=== PATIENT | male | born 1930 | race Caucasian/White ===

== ENCOUNTER 2018-02-15 04:40 | Inpatient (IN) ==
[2018-02-09 20:26] LABS: Appearance,Urine CLEAR; Bilirubin,Urine NEG (NEG); Color,Urine YELLOW; Glucose,Urine (UA) NEGATIVE (NEG); Leukocyte Esterase,Urine NEG /uL (NEG); Protein,Urine NEG (NEG); Specific Gravity,Urine 1.016 (1.000-1.035); Urine Blood NEG mg/dL (<0.03); Urobilinogen,Urine NEG (NEG)
[2018-02-09 20:31] LABS: Basophils # (Auto) 0.1 K/mcL (0.0-0.3); Basophils % (Auto) 0.8 % (0.0-2.0); Eosinophils # (Auto) 0.3 K/mcL (0.0-0.7); Eosinophils % (Auto) 3.3 % (0.0-7.0); Granulocytes % (Auto) 68.6 % (38.0-78.0); Lymphocytes # (Auto) 1.8 K/mcL (1.5-4.8); Lymphocytes % (Auto) 20.4 % (15.5-49.0); Mean Cell Volume 96.5 fL (80.0-100.0); Mean Corpuscular HGB Conc 33.3 g/dL (31.0-36.0); Mean Corpuscular Hemoglobin 32.1 pg (26.0-34.0); Monocytes # (Auto) 0.6 K/mcL (0.1-0.9); Monocytes % (Auto) 6.9 % (1.0-12.0); Platelet Count 251 K/mcL (140-440); RBC 4.24 M/mcL (4.50-5.90); Red Cell Distribution Width 16.2 % (11.5-14.5)
[2018-02-09 21:04] LABS: Blood Urea Nitrogen 16 mg/dl (8-23)
[2018-02-15] MEDS ORDERED: CELECOXIB 200 MG CAPSULE PO SCH (07:00)
[2018-02-15] MEDS ORDERED: ceFAZolin 1 GM VIAL IV SCH ×2 (07:00→15:30)
[2018-02-15] MEDS ORDERED: GABAPENTIN 300 MG CAPSULE PO SCH ×2 (07:00→15:00)
[2018-02-15] MEDS ORDERED: oxyCODONE 10 MG TAB.ER.12H PO SCH (07:00)
[2018-02-15] MEDS ORDERED: HEPARIN 20,000 UNIT/ML VIAL IR ONE (07:30)
[2018-02-15] MEDS ORDERED: HETASTARCH 6% 500 ML BAG IV ONE (07:50)
[2018-02-15] MEDS ORDERED: GLYCOPYRROLATE 0.2 MG/ML VIAL IV ONE (07:50)
[2018-02-15] MEDS ORDERED: LIDOCAINE HCL/PF 100 MG/5 ML SYRINGE IV ONE (07:50)
[2018-02-15] MEDS ORDERED: PHENYLEPHRINE 10 MG/ML VIAL IV ONE (07:50)
[2018-02-15] MEDS ORDERED: KETAMINE 100 MG/ML ML IV ONE (07:50)
[2018-02-15] MEDS ORDERED: PROPOFOL 200 MG/20 ML VIAL IV ONE (07:50)
[2018-02-15] MEDS ORDERED: EPINEPHrine 1 MG/10 ML (1:10,000) SYRINGE IV ONE (07:50)
[2018-02-15] MEDS ORDERED: TRANEXAMIC ACID 1,000 MG/10 ML VIAL IV ONE ×2 (07:50→09:11)
[2018-02-15] MEDS ORDERED: MIDAZOLAM 2 MG/2 ML VIAL IV ONE (07:50)
[2018-02-15] MEDS ORDERED: VASOPRESSIN 20 UNIT/ML VIAL IV ONE (07:50)
[2018-02-15] MEDS ORDERED: ONDANSETRON 4 MG/2 ML VIAL IV ONE (07:50)
[2018-02-15] MEDS ORDERED: ePHEDrine 50 MG/ML AMPUL IV ONE (07:50)
[2018-02-15] MEDS ORDERED: DEXAMETHASONE 10 MG/ML VIAL IV ONE (07:50)
[2018-02-15] MEDS ORDERED: MEPERIDINE 25 MG/ML SYRINGE IV PRN (08:22)
[2018-02-15] MEDS ORDERED: ACETAMINOPHEN 1,000 MG/100 ML BOTTLE IV ONE (08:22)
[2018-02-15] MEDS ORDERED: METHOCARBAMOL 1,000 MG/10 ML VIAL IV PRN ×2 (08:22→22:57)
[2018-02-15] MEDS ORDERED: IPRATROPIUM/ALBUTEROL 3 ML AMPUL.NEB NEB PRN (08:22)
[2018-02-15] MEDS ORDERED: FLUMAZENIL 0.1 MG/ML ML IV PRN (08:22)
[2018-02-15] MEDS ORDERED: BENZOCAINE/MENTHOL 1 LOZENGE PO PRN ×3 (08:22→13:34)
[2018-02-15] MEDS ORDERED: LACTATED RINGERS 250 ML IV PRN (08:22)
[2018-02-15] MEDS ORDERED: NALOXONE HCL 0.4 MG/ML VIAL IV PRN (08:22)
[2018-02-15] MEDS ORDERED: LACTATED RINGERS 1,000 ML IV SCH (08:30)
[2018-02-15] MEDS ORDERED: BACITRACIN ZINC PKT 1 PACKET PACKET TOPICAL ONE (08:31)
[2018-02-15] MEDS ORDERED: MAGNESIUM HYDROXIDE 30 ML ORAL.SUSP PO PRN (09:11)
[2018-02-15] MEDS ORDERED: HYDROCODONE/APAP 7.5/325MG TABLET PO PRN (09:11)
[2018-02-15] MEDS ORDERED: ONDANSETRON 4 MG/2 ML VIAL IV PRN (09:11)
[2018-02-15] MEDS ORDERED: DEXTROSE 31 GM ORAL.SUSP PO PRN ×2 (09:11→13:34)
[2018-02-15] MEDS ORDERED: BISACODYL 10 MG SUPP.RECT PR PRN ×2 (09:11→13:34)
[2018-02-15] MEDS ORDERED: POLYETHYLENE GLYCOL 3350 17 GM PACKET PO PRN (09:11)
[2018-02-15] MEDS ORDERED: FLEETS ADULT ENEMA PR PRN (09:11)
[2018-02-15] MEDS ORDERED: DEXTROSE 50% 50 ML VIAL IV PRN ×2 (09:11→13:34)
--- NOTE | 2018-02-15 09:11 | Brief Operative Note ---
Date of procedure: 02/15/18 Pre-op diagnosis: Right hip severe DJD Post-op diagnosis: same Procedure: Right anterior total hip arthroplasty Grafts/Implants: Yes (Depuy Actis std 10 stem, +1.5 36 delta head, 54 cup, neutral altrx liner) Anesthesia: spinal, GLMA Findings: severe arthritis Complications: none Surgeon: Jamal Lamb Tray Casting Machine Operator: Matti Adame Estimated blood loss (cc): 250 Specimens Removed/Pathology: none sent Condition: stable Disposition: PACU
[2018-02-15] MEDS ORDERED: 0.9 % SODIUM CHLORIDE 1,000 ML IV SCH (09:15)
[2018-02-15] MEDS ORDERED: ACETAMINOPHEN 500 MG TABLET PO PRN (09:16)
[2018-02-15] MEDS ORDERED: [UNRECOGNIZED DRUG - REMARK] PO PRN (09:16)
[2018-02-15] MEDS ORDERED: PIOGLITAZONE HCL 45 MG TABLET PO PRN (09:16)
[2018-02-15] MEDS ORDERED: SENNOSIDES 1 TABLET PO PRN (09:16)
[2018-02-15] MEDS ORDERED: ALPRAZolam 0.25 MG TABLET PO PRN (09:16)
[2018-02-15] MEDS ORDERED: TESTOSTERONE 100 MG IM SCH (09:30)
[2018-02-15] MEDS ORDERED: fentaNYL 100 MCG/2 ML VIAL IV PRN (09:48)
--- NOTE | 2018-02-15 10:09 | XRay Report ---
HISTORY: Reason for Exam:Post-op eval hypotension and difficulty breathing FINDINGS: There are moderate generalized alveolar opacities throughout both lungs. This is superimposed upon underlying pulmonary fibrosis. The heart is mildly enlarged. No pleural effusion is present. There are several bulla in the right upper lobe. The alveolar opacities are new since 06/15/16. IMPRESSION: Congestive heart failure or fluid overload superimposed upon underlying moderate pulmonary fibrosis Interpreted and Authenticated by: Gerber Olvera 02/15/18
--- NOTE | 2018-02-15 10:11 | XRay Report ---
HISTORY: Reason for Exam:Post-op Total Hip FINDINGS: There is well-positioned right total hip prosthesis. No fracture is present. There are multiple vascular calcifications in the groin in the lower pelvis. IMPRESSION: Well-positioned right hip prosthesis Interpreted and Authenticated by: Gerber Olvera 02/15/18
[2018-02-15] MEDS ORDERED: IPRATROPIUM/ALBUTEROL 3 ML AMPUL.NEB NEB ONE (11:20)
[2018-02-15] MEDS ORDERED: INSULIN LISPRO 1 UNIT/0.01 ML UNIT SQ SCH (11:30)
--- NOTE | 2018-02-15 11:39 | General Surgery Progress Note ---
Surgical - Auxillary Note - Subjective Patient Information: Note initiated : 02/15/18 at 11:34 am Service Date, if different from initiated Date: [] Patient: Robert Hammer 87 y/o M admitted on 02/15/18 for Right Total Hip Arthroplasty. Chief Complaint: [intraop hypotension, poorly responsive to fluids and mult pressors, eventually improved with vasopressin. post op PACU course complicated by persistent but improving hypotension, now off all pressors and latest sbp 109 , and hypoxia, mid to high 80s with o2 NC/simple mask. Nebs given, lasix given after pacu cxr showed pulm fibrosis and vascular congestion, 700 ml out since. pt awake alert following commands but poor resp effort and unable to perform on IS. after 2 hours in PACU, decision made to upgrade floor status, tele. Dr Loving contacted, accepts. orders written. DIETER]
--- NOTE | 2018-02-15 11:40 | General Surgery Progress Note ---
Surgical - Auxillary Note - Subjective Patient Information: Note initiated : 02/15/18 at 11:34 am Service Date, if different from initiated Date: [] Patient: Robert Hammer 87 y/o M admitted on 02/15/18 for Right Total Hip Arthroplasty. Chief Complaint: 0932. Hypotension. Patient with refractory hypotension throughout surgical course. Treated with multiple IV agents to maintain stable blood pressure. Able to keep blood pressure within 20% of patient's baseline blood pressure throughout perioperative course. Upon PACU arrival, blood pressure stable but slightly low. (88/60-115/70) quality assurance supervisor chassis, med surge charge nurse, and floor med surge nurse all notified of patient status. Patient stable in all other areas. Follow up EKG, Chest xray, and indwelling fuchs catheter ordered for further evaluation. EKG unremarkable. CXR shows possible fluid overload, lasix 20mg given. 1030. Patient's blood pressure remains stable, after further conversation with staff, decision for med surge status remains. 1130. Patient's oxygen saturation 88-92% on 2-4L nasal cannula. Decision made to make patient ICU status for closer monitoring. Dr. Lamb aware.
[2018-02-15] MEDS ORDERED: PIOGLITAZONE 15 MG TABLET PO PRN (13:34)
[2018-02-15] MEDS ORDERED: 0.9 % SODIUM CHLORIDE 10 ML SYRINGE IV SCH (14:00)
[2018-02-15] MEDS: GABAPENTIN 300 MG CAPSULE PO SCH ×2 (14:29→21:11)
[2018-02-15] MEDS: ceFAZolin 1 GM VIAL IV SCH (14:38)
[2018-02-15] MEDS: INSULIN LISPRO 1 UNIT/0.01 ML UNIT SQ SCH ×4 (14:45→22:12)
[2018-02-15] MEDS ORDERED: CLOBETASOL PROPIONATE TOPICAL SCH (15:00)
[2018-02-15 15:40] LABS: Basophils # (Auto) 0 K/mcL (0.0-0.3); Basophils % (Auto) 0.1 % (0.0-2.0); Eosinophils # (Auto) 0.1 K/mcL (0.0-0.7); Eosinophils % (Auto) 1.7 % (0.0-7.0); Granulocytes % (Auto) 92.7 % (38.0-78.0); Lymphocytes # (Auto) 0.4 K/mcL (1.5-4.8); Lymphocytes % (Auto) 4.2 % (15.5-49.0); Mean Cell Volume 95.8 fL (80.0-100.0); Mean Corpuscular HGB Conc 33.8 g/dL (31.0-36.0); Mean Corpuscular Hemoglobin 32.4 pg (26.0-34.0); Monocytes # (Auto) 0.1 K/mcL (0.1-0.9); Monocytes % (Auto) 1.3 % (1.0-12.0); Platelet Count 169 K/mcL (140-440); RBC 3.41 M/mcL (4.50-5.90)
--- NOTE | 2018-02-15 15:52 | Internal Medicine Consult Note ---
Medical - CN: HPI - Data of Consult Consult date: 02/15/18 Requesting Physician: Jamal Lamb Primary Care Provider: Shey Randle Family Provider: Blayne Schulte - Consult Narrative Reason for consult: Hypotension/ Intra op History of present illness: Mr. Hammer is a 87 year old Male with history of diabetes peripheral vascular disease atrial fibrillation and other medical issues was admitted to the [facility] service for an elective right hip replacement surgery. The patient had no symptoms in the preop. According to the patient. Urine the Intra-Op. The patient developed hypotension after administration of anesthesia. The patient needed pressor support intraoperatively and was hypotensive in the postop. Patient's blood pressure stabilized later and was moved to the ICU for close monitoring. Medicine was consulted for further management. EKG done postop showed no acute changes compared to the EKG done preop. On my evaluation patient was lying comfortably in bed, on 4-6 L of oxygen. This is a new oxygen requirement for the patient. He denies use of oxygen in the past however does have history of emphysema and COPD. The patient denies any chest pain shortness of breath cough fever headache dizziness abdominal pain nausea vomiting palpitations or any other acute concerning symptom at present or in the preop. Patient feels that he is doing well at this time and was anxious to eat some food. Chest x-ray done showed CHF versus fluid overload superimposed on moderate pulmonary fibrosis. Labs ordered. Patient's echocardiogram done 06/03/2017 shows ejection fraction of 55-60%, normal LV thickness, bilateral atrial enlargement, mild RV chamber enlargement. CC: Jamal Lamb Review of systems: CONSTITUTIONAL: No weight loss, fever, chills, weakness or fatigue. HEENT: Eyes: No visual loss, blurred vision, double vision or yellow sclerae. Ears, Nose, Throat: No hearing loss, sneezing, congestion, runny nose or sore throat. SKIN: No rash or itching. CARDIOVASCULAR: No chest pain, chest pressure or chest discomfort. No palpitations or edema. RESPIRATORY: No shortness of breath, cough or sputum. GASTROINTESTINAL: No nausea, vomiting or diarrhea or constipation. No abdominal pain or blood in stools No Dilia. GENITOURINARY: Denies Burning on urination. Blood in urine, or foul smelling urine NEUROLOGICAL: No headache, dizziness, syncope, paralysis, tremors, numbness or tingling in the extremities. No change in bowel or bladder control. MUSCULOSKELETAL: No muscle, back pain, joint pain or stiffness. HEMATOLOGIC: No bleeding or bruising. No enlarged nodes PSYCHIATRIC: No depression or anxiety. ENDOCRINOLOGIC: No reports of sweating, cold or heat intolerance. No polyuria or polydipsia. ALLERGIES: No hives, eczema or rhinitis. Skin: No rash, no jaundice, cyanosis or pallor. Medical - CN: [facility] Medical history: Medical History (Last Updated 08/17/17 @ 11:29 by Geni Meza) Emphysema of lung (Chronic) Obesity (Chronic) Gastritis (Chronic) History of tobacco abuse (Chronic) Urinary urgency (Chronic) Seborrheic dermatitis (Chronic) Neuropathy (Chronic) Hypogonadism (Chronic) Hypertension, essential (Chronic) Hyperlipidemia (Chronic) GERD (gastroesophageal reflux disease) (Chronic) Stomach ulcer (Chronic) Right knee pain (Chronic ~2012) Right hip pain (Chronic ~2012) DMII (diabetes mellitus, type 2) (Chronic) Arm pain (Chronic ~10/2016) Shoulder pain (Chronic ~10/2016) Prostate cancer (Chronic ~2015) Colon cancer (Chronic ~2011) Pneumonia (Acute) Surgical history: Past Surgical History (Last Updated 08/17/17 @ 11:29 by Geni Meza) H/O colonoscopy (Chronic) History of colon surgery (Chronic) Pertinent family history: Family History (Last Updated 08/17/17 @ 11:11 by Geni Meza) Brother Prostate cancer Medical - CN: Meds Home Medications Medication Instructions Recorded Confirmed Type alprazolam 0.25 mg tablet 0.25 mg PO DAILYP PRN tab 08/17/17 02/09/18 History celecoxib 200 mg capsule 200 mg PO QDAY 08/17/17 02/09/18 History finasteride 5 mg tablet 5 mg PO QDAY 08/17/17 02/09/18 History folic acid 400 mcg tablet 400 mcg PO DAILYP PRN 08/17/17 02/09/18 History gabapentin 300 mg capsule 300 mg PO TID 08/17/17 02/09/18 History glipizide ER 5 mg tablet, extended 5 mg PO BIDCC tab 08/17/17 02/09/18 History release 24 hr lovastatin 40 mg tablet 60 mg PO HS 08/17/17 02/09/18 History magnesium 250 mg tablet 500 mg PO QDAY 08/17/17 02/09/18 History pioglitazone 45 mg tablet 45 mg PO DAILYP PRN 08/17/17 02/09/18 History potassium 99 mg tablet 99 mg PO QDAY 08/17/17 02/09/18 History tamsulosin 0.4 mg capsule 0.8 mg PO HS cap 08/17/17 02/09/18 History testosterone 100 mg IM Q10D 08/17/17 02/09/18 History vitamin E 400 unit capsule 400 unit PO HS 08/17/17 02/09/18 History zinc 100 mg tablet 100 mg PO QDAY tab 08/17/17 02/09/18 History zinc 50 mg tablet 50 mg PO HS 08/17/17 02/09/18 History amitriptyline 75 mg tablet 75 mg PO HS tab 09/21/17 02/09/18 History pydqbwfx-rwdzo-jbn7-C-kyler-bor 1 tab PO BID 09/21/17 02/09/18 History sennosides 8.6 mg tablet 8.6 mg PO DAILYP PRN 09/21/17 02/09/18 History Acetaminophen [Tylenol] 1,000 mg PO Q4HP PRN 02/09/18 02/09/18 History Aspirin [Aspirin EC] 325 mg PO DAILY 02/09/18 02/09/18 History Caffeine [No Doz] 200 mg PO PRN PRN 02/09/18 02/09/18 History Cilostazol [Pletal] 100 mg PO BIDAC 02/09/18 02/09/18 History Clobetasol Propionate [Cormax] 1 each TOPICAL TID 02/09/18 02/09/18 History Ferrous Sulfate 325 mg PO BIDCC 02/09/18 02/09/18 History Oxybutynin Chloride [Oxybutynin 10 mg PO DAILY 02/09/18 02/09/18 History Chloride ER] Vitamin D3 800 unit PO DAILY 02/09/18 02/09/18 History sitaGLIPtin [Januvia] 100 mg PO DAILY 02/09/18 02/09/18 History Allergies Allergy/AdvReac Type Severity Reaction Status Date / Time metformin [From Glucophage] Allergy Unknown Unknown Verified 02/15/18 07:03 triamcinolone Allergy Unknown Unknown Verified 02/15/18 07:03 Medical - CN: Exam - Constitutional Vitals: Temp Pulse Resp BP Pulse Ox 96.6 F L 84 16 89/54 96 02/15/18 10:40 02/15/18 05:05 02/15/18 11:30 02/15/18 11:30 02/15/18 11:30 Exam: GENERAL: The patient is a well-developed, well-nourished in no apparent distress. Is alert and oriented x3. VITAL SIGNS: Reviewed and as noted elsewhere. HEENT: Head is normocephalic and atraumatic. Extraocular muscles are intact. Pupils are equal, round, and reactive to light. Nares appeared normal. Mouth appears any without lesions. Mucous membranes are moist. NECK: Normal to inspection, Supple, No lymphadenopathy or thyromegaly. LUNGS: Air entry equal on both sides, no wheezing, patient did have bilateral lower lobe crackles right more than the left.. No accessory muscles of respiration HEART: Regular rate and rhythm was irregular , S1 and S2 heard, no Gallop, S3 or Rub Noted, No Gross murmur heard. [Nzaaz-[id number]-[id number] ultrasound done showed IVC up to 2 cm in diameter but was collapsing normally with inspiration] ABDOMEN: Soft, nontender, and nondistended. Positive bowel sounds. No hepatosplenomegaly was noted. EXTREMITIES: No cyanosis, clubbing, rash, lesions or edema. NEUROLOGIC: Cranial nerves II through XII are grossly intact. Motor and Sensory System Grossly Intact PSYCHIATRIC: Normal affect, Normal Mood. Appropriate Behavior. SKIN: No ulceration or wounds noted, No jaundice, No rash noted. Medical - CN: Result - Labs CBC & Chem 7: 02/15/18 15:00 02/09/18 16:25 Labs: Short CBC 02/15/18 Range/Units 15:00 WBC 8.6 (4.5-11.0) K/mcL Hgb 11.0 L (13.5-16.5) g/dL Hct 32.7 L (41.0-55.0) % Plt Count 169 (140-440) K/mcL Medical - CN: A/P - Narrative A/P Narrative: A/p Intraop Hypotension: Likely secondary to anesthetic medication. Blood pressure stable at this point. Continue to monitor closely. Labs ordered, including CBC CMP BNP TSH cortisol troponin and pro calcitonin along with blood cultures. D-dimer also ordered. If elevated we will get a CT angiogram Hypoxia: Chest x-ray shows pulmonary fibrosis and mild fluid overload CHF. Patient did get some Lasix with improvement in symptoms according to documentation. Will monitor closely for now. Repeat dose of Lasix if the blood pressure allows. Patient did not have wheezing on exam did not have shortness of breath or cough. Duo nebs every 6 hours for now. DM: Glucose level reviewed, home medications renewed. If the glucose values are high will add sliding scale regime. Peripheral vascular disease-continue statin and aspirin. Atrial fibrillation-patient is on aspirin for same. Not on anticoagulation. Reviewed cardiology note did have history of noncompliance with medication as well as bleeding complications therefore anticoagulation has not been continued. Social History - Social History marital status: - Tobacco smoking status: Former smoker ([id number]-alwf smoking history) - Alcohol alcohol intake frequency: former alcohol drinker - Substance use substance use type: does not use
[2018-02-15 16:21] LABS: ALT/SGPT 26 U/l (0-40); Albumin 3.5 gm/dL (3.2-5.2); Bilirubin,Direct 0.3 mg/dL (0.0-0.3); Blood Urea Nitrogen 19 mg/dl (8-23); Gamma Glutamyl Transpeptidase 268 U/L (8-61)
[2018-02-15 16:22] LABS: Albumin/Globulin Ratio 1.7 (1.0-2.3); Alkaline Phosphatase 85 U/L (39-117)
[2018-02-15] MEDS ORDERED: CILOSTAZOL 100 MG TABLET PO SCH (17:00)
[2018-02-15] MEDS ORDERED: glipiZIDE 5 MG TAB.XL.24H PO SCH (17:30)
[2018-02-15] MEDS ORDERED: IOPAMIDOL 100 ML BOTTLE IV ONE (17:58)
[2018-02-15] MEDS: HYDROCODONE/APAP 7.5/325MG TABLET PO PRN ×2 (18:18→20:02)
[2018-02-15] MEDS: glipiZIDE 5 MG TAB.XL.24H PO SCH (18:21)
[2018-02-15] MEDS: CILOSTAZOL 100 MG TABLET PO SCH (18:21)
[2018-02-15] MEDS: IPRATROPIUM/ALBUTEROL 3 ML AMPUL.NEB NEB SCH (19:40)
[2018-02-15] MEDS ORDERED: ASPIRIN 325 MG ENTERIC COATED TABLET PO SCH (21:00)
[2018-02-15] MEDS ORDERED: TAMSULOSIN 0.4 MG CAPSULE PO SCH (21:00)
[2018-02-15] MEDS ORDERED: VITAMIN E (DL,TOCOPHERYL ACET) 400 UNIT CAPSULE PO SCH (21:00)
[2018-02-15] MEDS ORDERED: AMITRIPTYLINE 25 MG TABLET PO SCH (21:00)
[2018-02-15] MEDS ORDERED: SIMVASTATIN 20 MG TABLET PO SCH (21:00)
[2018-02-15] MEDS ORDERED: SENNOSIDES 1 TABLET PO SCH (21:00)
[2018-02-15] MEDS ORDERED: ZINC SULFATE 50 MG CAPSULE PO SCH (21:00)
[2018-02-15] MEDS ORDERED: DOCUSATE SODIUM 100 MG CAPSULE PO SCH (21:00)
[2018-02-15] MEDS: SIMVASTATIN 20 MG TABLET PO SCH (21:10)
[2018-02-15] MEDS: TAMSULOSIN 0.4 MG CAPSULE PO SCH (21:10)
[2018-02-15] MEDS: ASPIRIN 325 MG ENTERIC COATED TABLET PO SCH (21:13)
[2018-02-15] MEDS: DOCUSATE SODIUM 100 MG CAPSULE PO SCH (21:13)
[2018-02-15] MEDS: ALPRAZolam 0.25 MG TABLET PO PRN (21:14)
[2018-02-15] MEDS: AMITRIPTYLINE 25 MG TABLET PO SCH (21:14)
[2018-02-15] MEDS ORDERED: METHOCARBAMOL 1,000 MG/10 ML VIAL ONE (23:05)
[2018-02-16] MEDS: HYDROCODONE/APAP 7.5/325MG TABLET PO PRN (00:02)
[2018-02-16] MEDS: ceFAZolin 1 GM VIAL IV SCH (00:05)
[2018-02-16] MEDS: IPRATROPIUM/ALBUTEROL 3 ML AMPUL.NEB NEB SCH ×4 (01:42→19:31)
--- NOTE | 2018-02-16 07:44 | Orthopedic Progress Note ---
Orthopedics - Auxillary Note - Subjective Patient Information: Note initiated : 02/16/18 at 7:42 am Service Date, if different from initiated Date: [] Patient: Robert Hammer 87 y/o M admitted on 02/15/18 for Right Total Hip Arthroplasty. Chief Complaint: no c/o. bandages c/d/i nvi-distal Vital Signs Temp Pulse Resp BP BP Pulse Ox 02/16/18 03:56 98.2 F 18 98/60 96 02/16/18 01:01 109/58 02/16/18 00:11 18 101/57 99 02/15/18 23:01 98.4 F 17 105/66 96 02/15/18 22:02 115/86 02/15/18 21:03 94/77 02/15/18 20:01 98.3 F 86 20 95/57 98 02/15/18 20:00 96 02/15/18 19:57 85 18 97 02/15/18 19:29 85/56 02/15/18 19:01 110/100 02/15/18 18:32 112/93 02/15/18 16:06 91/69 100 02/15/18 16:03 77/57 02/15/18 16:01 73/44 02/15/18 14:31 100/65 02/15/18 14:01 104/58 02/15/18 13:31 103/54 02/15/18 13:02 107/54 02/15/18 12:31 87/58 93 02/15/18 12:01 91/64 91 02/15/18 12:00 16 95 02/15/18 11:59 90/64 94 02/15/18 11:30 16 89/54 96 02/15/18 10:55 15 82/51 96 02/15/18 10:50 14 86/52 88 L 02/15/18 10:40 96.6 F L 14 109/64 92 02/15/18 10:35 15 83/54 94 02/15/18 10:30 16 76/50 93 02/15/18 10:25 16 80/46 90 02/15/18 10:20 96.1 F L 15 99/59 94 02/15/18 10:15 14 89/62 02/15/18 10:10 15 77/54 95 02/15/18 10:05 96.5 F L 15 93/58 02/15/18 10:00 17 114/68 02/15/18 09:57 18 83/56 02/15/18 09:50 18 91/51 02/15/18 09:45 96.4 F L 16 81/54 02/15/18 09:40 15 106/68 02/15/18 09:35 16 120/59 02/15/18 09:32 98.0 F 15 116/55 99 02/15/18 09:30 17 114/77 Intake and Output 02/15/18 02/16/18 02/16/18 21:59 05:59 13:59 Intake Total 480 / 480 720 / 720 Output Total 750 / 750 650 / 650 Balance -270 / -270 70 / 70 Intake: Oral 480 / 480 720 / 720 Output: Urine Catheter Amount 750 / 750 650 / 650 Other: Meal Lunch Snack Percent of Meal Consumed 100% 100% Feeding Ability Independent Independent Weight 217 lb 4.8 oz Vital Signs - 24 hr 02/15/18 09:30 02/15/18 09:32 02/15/18 09:35 Temperature 98.0 F Pulse Rate Respiratory Rate 17 15 16 Blood Pressure Blood Pressure [Left Arm] 114/77 116/55 120/59 Pulse Oximetry (%) 99 02/15/18 09:40 02/15/18 09:45 02/15/18 09:50 Temperature 96.4 F L Pulse Rate Respiratory Rate 15 16 18 Blood Pressure Blood Pressure [Left Arm] 106/68 81/54 91/51 Pulse Oximetry (%) 02/15/18 09:57 02/15/18 10:00 02/15/18 10:05 Temperature 96.5 F L Pulse Rate Respiratory Rate 18 17 15 Blood Pressure Blood Pressure [Left Arm] 83/56 114/68 93/58 Pulse Oximetry (%) 02/15/18 10:10 02/15/18 10:15 02/15/18 10:20 Temperature 96.1 F L Pulse Rate Respiratory Rate 15 14 15 Blood Pressure Blood Pressure [Left Arm] 77/54 89/62 99/59 Pulse Oximetry (%) 95 94 02/15/18 10:25 02/15/18 10:30 02/15/18 10:35 Temperature Pulse Rate Respiratory Rate 16 16 15 Blood Pressure Blood Pressure [Left Arm] 80/46 76/50 83/54 Pulse Oximetry (%) 90 93 94 02/15/18 10:40 02/15/18 10:50 02/15/18 10:55 Temperature 96.6 F L Pulse Rate Respiratory Rate 14 14 15 Blood Pressure Blood Pressure [Left Arm] 109/64 86/52 82/51 Pulse Oximetry (%) 92 88 L 96 02/15/18 11:30 02/15/18 11:59 02/15/18 12:00 Temperature Pulse Rate Respiratory Rate 16 16 Blood Pressure 90/64 Blood Pressure [Left Arm] 89/54 Pulse Oximetry (%) 96 94 95 02/15/18 12:01 02/15/18 12:31 02/15/18 13:02 Temperature Pulse Rate Respiratory Rate Blood Pressure 91/64 87/58 107/54 Blood Pressure [Left Arm] Pulse Oximetry (%) 91 93 02/15/18 13:31 02/15/18 14:01 02/15/18 14:31 Temperature Pulse Rate Respiratory Rate Blood Pressure 103/54 104/58 100/65 Blood Pressure [Left Arm] Pulse Oximetry (%) 02/15/18 16:01 02/15/18 16:03 02/15/18 16:06 Temperature Pulse Rate Respiratory Rate Blood Pressure 73/44 77/57 91/69 Blood Pressure [Left Arm] Pulse Oximetry (%) 100 02/15/18 18:32 02/15/18 19:01 02/15/18 19:29 Temperature Pulse Rate Respiratory Rate Blood Pressure 112/93 110/100 85/56 Blood Pressure [Left Arm] Pulse Oximetry (%) 02/15/18 19:57 02/15/18 20:00 02/15/18 20:01 Temperature 98.3 F Pulse Rate 85 86 Respiratory Rate 18 20 Blood Pressure 95/57 Blood Pressure [Left Arm] Pulse Oximetry (%) 97 96 98 02/15/18 21:03 02/15/18 22:02 02/15/18 23:01 Temperature 98.4 F Pulse Rate Respiratory Rate 17 Blood Pressure 94/77 115/86 105/66 Blood Pressure [Left Arm] Pulse Oximetry (%) 96 02/16/18 00:11 02/16/18 01:01 02/16/18 03:56 Temperature 98.2 F Pulse Rate Respiratory Rate 18 18 Blood Pressure 101/57 109/58 98/60 Blood Pressure [Left Arm] Pulse Oximetry (%) 99 96 s/p R CHALO-stable mobilize with PT
--- NOTE | 2018-02-16 08:00 | Cat Scan Report ---
CLINICAL INFORMATION: Reason for Exam:hypoxia/ hypotension COMPARISON: Chest x-ray on 02/15/18 TECHNIQUE: Axial images obtained through the chest. intravenous contrast administration was administered, and scanning was performed during pulmonary arterial phase. Sagittally and coronally reformatted images were obtained. MIP reformatted images. FINDINGS: The pulmonary arteries are normal with no intraluminal filling defects. Moderate centrilobular emphysema is present throughout both lungs with the greatest involvement in the upper lobes. Tiny bilateral layering pleural effusions are present. There is mild thickening of the interlobular septa in the lung bases. Also subtle alveolar opacities posteriorly and inferiorly in both lung bases, left worse than right. The diffuse groundglass alveolar opacity seen on the preceding chest x-ray have nearly but not completely resolved. The heart is mildly enlarged. There is a moderate amount of calcified plaque in the coronary arteries. IMPRESSION: No evidence of pulmonary emboli Moderate emphysema Resolving pulmonary vascular congestion Minor atelectasis or pneumonia posteriorly in both lung bases Interpreted and Authenticated by: Gerber Olvera 02/16/18
[2018-02-16] MEDS ORDERED: sitaGLIPtin 100 MG TABLET PO SCH (09:00)
[2018-02-16] MEDS ORDERED: FINASTERIDE 5 MG TABLET PO SCH (09:00)
[2018-02-16] MEDS ORDERED: OXYBUTYNIN CHLORIDE 5 MG TAB.XL.24H PO SCH (09:00)
[2018-02-16] MEDS ORDERED: FOLIC ACID 1 MG TABLET PO PRN (09:00)
[2018-02-16] MEDS ORDERED: ZINC SULFATE 50 MG CAPSULE PO SCH (09:00)
[2018-02-16] MEDS ORDERED: MAGNESIUM OXIDE 400 MG TABLET PO SCH (09:00)
[2018-02-16] MEDS ORDERED: VITAMIN D3 400 UNIT TABLET PO SCH (09:00)
[2018-02-16] MEDS ORDERED: FUROSEMIDE 20 MG/2 ML VIAL IV ONE (09:07)
[2018-02-16] MEDS: INSULIN LISPRO 1 UNIT/0.01 ML UNIT SQ SCH ×4 (09:15→21:04)
[2018-02-16] MEDS: FINASTERIDE 5 MG TABLET PO SCH (09:16)
[2018-02-16] MEDS: ASPIRIN 325 MG ENTERIC COATED TABLET PO SCH ×2 (09:16→21:05)
[2018-02-16] MEDS: CILOSTAZOL 100 MG TABLET PO SCH ×2 (09:16→17:13)
[2018-02-16] MEDS: glipiZIDE 5 MG TAB.XL.24H PO SCH ×2 (09:16→17:13)
[2018-02-16] MEDS: OXYBUTYNIN CHLORIDE 5 MG TAB.XL.24H PO SCH (09:16)
[2018-02-16] MEDS: DOCUSATE SODIUM 100 MG CAPSULE PO SCH ×2 (09:16→21:05)
[2018-02-16] MEDS: sitaGLIPtin 100 MG TABLET PO SCH (09:16)
[2018-02-16] MEDS: GABAPENTIN 300 MG CAPSULE PO SCH ×3 (09:17→21:06)
[2018-02-16] MEDS: ZINC SULFATE 50 MG CAPSULE PO SCH (09:19)
[2018-02-16] MEDS: methylPREDNISolone SOD SUCC 125 MG/2 ML VIAL IV SCH ×2 (09:46→17:00)
[2018-02-16] MEDS ORDERED: MAGNESIUM SULFATE 2 GM/50 ML BAG IV ONE (10:41)
--- NOTE | 2018-02-16 10:44 | Operative Note ---
DATE OF OPERATION: 02/15/2018 PREOPERATIVE DIAGNOSIS: Right hip severe osteoarthritis. POSTOPERATIVE DIAGNOSIS: Right hip severe osteoarthritis. PROCEDURE PERFORMED: Right anterior total hip arthroplasty placing a DePuy Actis size 10 standard offset femoral component; a +1.5, 36 mm delta ceramic head ball; a 54 mm [place] cup with a neutral Altrx liner. SURGEON: Jamal Lamb M.D. CARDIAC CATHETERIZATION TECHNICIAN: Yoni Adame PA-C. ANESTHESIA: Spinal plus general. DRAINS: None. SPECIMENS: Femoral head and reamings which were discarded. BLOOD LOSS: 250 mL. COMPLICATIONS: None. POSTOPERATIVE CONDITION: Stable. INDICATIONS FOR SURGERY: This is an 87-year-old male who has had longstanding, progressive worsening, severe right hip pain. Radiographs showed severe [id number] osteoarthritis. FINDINGS AT SURGERY: As above. Post implantation showed good component position and leg length equality. PROCEDURE IN DETAIL: The patient had been seen preoperatively and informed consent had been obtained after discussion of risks and benefits of surgery. Risks including, but not limited to, bleeding, possibly requiring transfusion; infection, possibly requiring implant removal and prolonged IV antibiotics; injury to nerves, blood vessels and other surrounding structures; anesthetic risks; incomplete or no resolution of symptoms; stiffness; pain; weakness; dislocation; DVT and pulmonary embolus risks. He understood these risks and wished to proceed. Correct operative site was marked and then patient was taken to the operating room after spinal anesthesia was given. He was carefully positioned on the fracture table and then the right hip and groin were carefully prepped and draped in normal sterile fashion. A time-out was performed verifying patient name, operative site, and plan. Standard anterior approach incision was made with a scalpel through skin and subcutaneous tissue and then hemostasis obtained with Bovie cautery. Continued blunt dissection down onto the tensor fascia, and this was undermined circumferentially. Irrisept was irrigated and then a ring retractor placed. We then incised the tensor fascia in line with the muscle fibers and then carefully bluntly dissected medial to the muscle belly. Blunt cobra retractors were placed on the superior and inferior neck. Circumflex vessels were coagulated and cut and vastus fascia split distally. We then performed an anterior capsulectomy, and a corkscrew was placed in the femoral head. Osteotome was used under fluoro to identify our neck cut and then oscillating saw was used to make our osteotomy. Femoral head was removed and the acetabulum was exposed. Labrum was excised circumferentially, as well as soft tissue from the floor. We then reamed, directly medializing to the tear drop, and then increased reamer size and angle until we got rim ream with a 53 reamer. We irrigated Irrisept and opened a 54 [place] cup. After a minute we pulse lavaged copiously with saline. The cup was then impacted at approximately 35 to 40 degrees of inclination and 25 degrees of anteversion. We did get good press-fit, so a center hole cover was placed, and a neutral Altrx liner was carefully aligned and impacted. Traction was removed from the leg. It was externally rotated and capsule released around the medial and posterior neck. We then extended and adducted the leg and released capsule out to the greater trochanter. Box osteotome and awl were used to enter the canal and then a rongeur and rasp to lateralize. We then sequentially broached up to a size 9 which seated at our neck cut. We placed a standard neck trial and a 36, 1 5 head ball trial and then reduced the hip. It did not reduce with excessive tension. AP pelvis was taken to verify neutral rotation and then AP of the nonoperative and operative hips were taken and x-rays were overlaid. Our leg lengths appeared symmetrical. We redislocated and exposed the proximal femur. I was able, however, to impact the stem below our neck cut, so I went up to a size 10 femoral trial. This seated just above the neck cut. We then removed the trial. A 10 standard offset Actis stem was opened. The femoral canal was irrigated with Irrisept, after a minute we pulse lavaged copiously with saline and then impacted the stem. This did seat fully on our neck cut. A +1.5 head ball was opened. The stem was carefully cleaned and dried and the head ball briskly impacted. Hip was reduced again without excessive tension. Final fluoro images were taken which showed good component position and leg length equality. We irrigated with Irrisept, after a minute we pulse lavaged with saline. A #1 Vicryl running stitch was used to close tensor fascia, one running proximal and one running distal. Final Irrisept irrigation was done, after a minute final pulse lavage, and then 2-0 Monocryl for subcutaneous and maria e for skin. Xeroform and sterile dressing were applied. The patient was then awakened, extubated, and transferred to recovery in stable condition. [email or web address] Job ID: [id number] Doc ID: [id number] Jamal Lamb MD
[2018-02-16] MEDS: ACETAMINOPHEN 500 MG TABLET PO PRN (14:13)
--- NOTE | 2018-02-16 15:07 | Internal Med Progress Note ---
Medical - PN: Subj Patient information: Note initiated : 02/16/18 at 3:06 pm Service Date, if different from initiated Date: [] Patient: Robert Hammer 87 y/o M admitted on 02/15/18 for Right Total Hip Arthroplasty. Chief Complaint: [] Interval history: Mr. Hammer is a 87 year old Male with history of diabetes peripheral vascular disease atrial fibrillation and other medical issues was admitted to the [facility] for an elective right hip replacement surgery. The patient had no symptoms in the preop. According to the patient. Urine the Intra-Op. The patient developed hypotension after administration of anesthesia. The patient needed pressor support intraoperatively and was hypotensive in the postop. Patient's blood pressure stabilized later and was moved to the ICU for close monitoring. Medicine was consulted for further management. EKG done postop showed no acute changes compared to the EKG done preop. On my evaluation patient was lying comfortably in bed, on 4-6 L of oxygen. This is a new oxygen requirement for the patient. He denies use of oxygen in the past however does have history of emphysema and COPD. The patient denies any chest pain shortness of breath cough fever headache dizziness abdominal pain nausea vomiting palpitations or any other acute concerning symptom at present or in the preop. Patient feels that he is doing well at this time and was anxious to eat some food. Chest x-ray done showed CHF versus fluid overload superimposed on moderate pulmonary fibrosis. Labs ordered. Patient's echocardiogram done 06/03/2017 shows ejection fraction of 55-60%, normal LV thickness, bilateral atrial enlargement, mild RV chamber enlargement. - Constitutional Vitals: Vital Signs Temp Pulse Resp BP Pulse Ox 97.2 F 104 H 20 87/56 95 02/16/18 12:01 02/16/18 12:01 02/16/18 12:01 02/16/18 12:01 02/16/18 12:01 Period Temp Pulse Resp BP Sys/Wu Pulse Ox Last 24 Hr 97.2 F-98.4 F 85-104 17-20 73-115/40-100 95-100 Intake and Output 02/16/18 02/16/18 02/16/18 05:59 13:59 21:59 Intake Total 720 / 720 290 / 290 Output Total 650 / 650 Balance 70 / 70 290 / 290 Weight 217 lb 4.8 oz Patient Weight 02/17/18 05:59 Weight 217 lb 4.8 oz Intake & Output: Intake & Output 02/16/18 02/16/18 02/16/18 05:59 13:59 21:59 Intake Total 720 / 720 290 / 290 Output Total 650 / 650 Balance 70 / 70 290 / 290 Weight 217 lb 4.8 oz Intake: IV 50 / 50 Oral 720 / 720 240 / 240 Output: Urine Catheter Amount 650 / 650 Other: Meal Snack Breakfast Percent of Meal Consumed 100% 100% Feeding Ability Independent Assist with Tray Set Up Medical - PN: Obj Da - Labs CBC & Chem 7: 02/16/18 03:45 02/15/18 15:00 Labs: Abnormal Lab Results 02/16/18 02/15/18 02/15/18 03:45 15:00 15:00 RBC Hgb 10.3 L Hct 31.2 L RDW Gran % Lymph % (Auto) Lymph # (Auto) D-Dimer 1.89 H Glucose 252 H Calcium 8.4 L GGT 268 H NT-Pro-B Natriuret Pep 1085.0 H Total Protein 5.6 L Globulin 2.1 L 02/15/18 15:00 RBC 3.41 L Hgb 11.0 L Hct 32.7 L RDW 16.0 H Gran % 92.7 H Lymph % (Auto) 4.2 L Lymph # (Auto) 0.4 L D-Dimer Glucose Calcium GGT NT-Pro-B Natriuret Pep Total Protein Globulin Meds: Medications Acetaminophen (Tylenol) 1,000 mg PO Q4HP PRN PRN Reason: Pain Last Admin: 02/16/18 14:13 Dose: 1,000 mg Hydrocodone Bitart/Acetaminophen ([place] 7.5/325mg) 0 tab PO Q4HP PRN PRN Reason: PAIN LEVEL 3-6 Last Admin: 02/16/18 00:02 Dose: 2 tab Albuterol/Ipratropium (Duoneb) 3 ml NEB Q6HRT [facility] Last Admin: 02/16/18 13:58 Dose: Not Given Alprazolam (Xanax) 0.25 mg PO DAILYP PRN PRN Reason: Anxiety Last Admin: 02/15/18 21:14 Dose: 0.25 mg Amitriptyline HCl (Elavil) 75 mg PO HS [facility] Last Admin: 02/15/18 21:14 Dose: 75 mg Aspirin (Ecotrin) 325 mg PO BID [facility] Last Admin: 02/16/18 09:16 Dose: 325 mg Bisacodyl (Dulcolax) 10 mg RI Q2-3DAYS PRN PRN Reason: Constipation Cilostazol (Pletal) 100 mg PO BIDAC [facility] Last Admin: 02/16/18 09:16 Dose: 100 mg Dextrose (Dextrose 50%) 0 ml IV UD PRN PRN Reason: Hypoglycemia Diagnostic Test (Pha) (Accu-Chek) 1 each FS ACHS [facility] Last Admin: 02/16/18 11:40 Dose: 1 each Docusate Sodium (Colace) 100 mg PO BID [facility] Last Admin: 02/16/18 09:16 Dose: 100 mg Finasteride (Proscar) 5 mg PO QDAY [facility] Last Admin: 02/16/18 09:16 Dose: 5 mg Gabapentin (Neurontin) 300 mg PO TID [facility] Last Admin: 02/16/18 14:13 Dose: 300 mg Glipizide (Glucotrol Xl) 5 mg PO BIDCC [facility] Last Admin: 02/16/18 09:16 Dose: 5 mg Glucose (Insta-Glucose) 15 gm PO PRN PRN PRN Reason: Hypoglycemia Insulin Human Lispro (Humalog) 0 unit SQ [facility] PRN Reason: Protocol Last Admin: 02/16/18 12:06 Dose: 6 unit Magnesium Hydroxide (Milk Of Magnesia) 30 ml PO BIDP PRN PRN Reason: Constipation Methocarbamol (Robaxin) 500 mg IV Q6HP PRN PRN Reason: Muscle Spasm Methylprednisolone Sodium Succinate (Solu-Medrol) 62.5 mg IV Q8 [facility] Last Admin: 02/16/18 09:46 Dose: 62.5 mg Oxybutynin Chloride (Ditropan Xl) 10 mg PO DAILY [facility] Last Admin: 02/16/18 09:16 Dose: 10 mg Pioglitazone HCl (Actos) 45 mg PO DAILYP PRN PRN Reason: hyperglycemia Simvastatin (Zocor) 20 mg PO HS [facility] Last Admin: 02/15/18 21:10 Dose: 20 mg Sitagliptin Phosphate (Januvia) 100 mg PO DAILY [facility] Last Admin: 02/16/18 09:16 Dose: 100 mg Tamsulosin HCl (Flomax) 0.8 mg PO HS [facility] Last Admin: 02/15/18 21:10 Dose: 0.8 mg Throat Lozenges (Cepacol) 1 lozenge PO PRN PRN PRN Reason: Sore Throat Zinc Sulfate (Zinc) 100 mg PO DAILY [facility] Last Admin: 02/16/18 09:19 Dose: 100 mg Medical - PN: A/P - Time Spent With Patient Total time spent is greater than 50% in coordination of care (as documented) at patient's floor/unit and/or counseling patient: - Narrative A/P Narrative: A/p Intraop and post op Hypotension: Likely secondary to anesthetic medication. Blood pressure stable at this point, but on the lower end of normal, Continue to monitor closely. labs stable, CT Angio neg for PE. Echo ordered. IV lasix for possible chf. related. vs infection. Procalcitonin is neg, But CT did show possible infiltrate. start on levofloxacin. Hypoxia: Chest x-ray shows pulmonary fibrosis and mild fluid overload CHF. Patient did get some Lasix with improvement in symptoms according to documentation. repeat dose of lasix given today . Patient did not have wheezing on exam did not have shortness of breath or cough. Duo nebs every 6 hours for now. IV steroids and IV levofloxacin added after CT findings of emphysema and pt needing increased oxygen. CT showed possibl infection, possible chf, and moderate emphysema. DM: Glucose level reviewed, home medications renewed. add sliding scale regime. given that we have started steroids. Peripheral vascular disease-continue statin and aspirin. Atrial fibrillation-patient is on aspirin for same. Not on anticoagulation. Reviewed cardiology note did have history of noncompliance with medication as well as bleeding complications therefore anticoagulation has not been continued. HR was controlled till this AM then went in RVR Plan to monitor, use digoxin for rate control given hypotension. DVT asa bid as per ortho protocol Medical - PN: Qual - VTE Deep Vein Thrombosis/Pulmonary Embolism Present on Admission: No
[2018-02-16] MEDS: LEVOFLOXACIN 750 MG/150 ML BAG IV SCH (17:44)
[2018-02-16] MEDS ORDERED: DIGOXIN 500 MCG/2 ML AMPUL IV ONE ×2 (18:44→18:59)
[2018-02-16] MEDS: AMITRIPTYLINE 25 MG TABLET PO SCH (21:05)
[2018-02-16] MEDS: TAMSULOSIN 0.4 MG CAPSULE PO SCH (21:05)
[2018-02-16] MEDS: SIMVASTATIN 20 MG TABLET PO SCH (21:05)
[2018-02-17] MEDS: IPRATROPIUM/ALBUTEROL 3 ML AMPUL.NEB NEB SCH ×4 (01:18→19:39)
[2018-02-17 05:16] LABS: Basophils # (Auto) 0 K/mcL (0.0-0.3); Basophils % (Auto) 0.1 % (0.0-2.0); Eosinophils # (Auto) 0 K/mcL (0.0-0.7); Eosinophils % (Auto) 0 % (0.0-7.0); Granulocytes % (Auto) 93.4 % (38.0-78.0); Lymphocytes # (Auto) 0.6 K/mcL (1.5-4.8); Mean Cell Volume 97.3 fL (80.0-100.0); Mean Corpuscular HGB Conc 32.7 g/dL (31.0-36.0); Mean Corpuscular Hemoglobin 31.8 pg (26.0-34.0); Monocytes # (Auto) 0.4 K/mcL (0.1-0.9); Monocytes % (Auto) 2.5 % (1.0-12.0); Platelet Count 153 K/mcL (140-440); RBC 3.13 M/mcL (4.50-5.90); Red Cell Distribution Width 15.9 % (11.5-14.5)
[2018-02-17] MEDS: methylPREDNISolone SOD SUCC 125 MG/2 ML VIAL IV SCH ×2 (05:24)
[2018-02-17 06:08] LABS: ALT/SGPT 17 U/l (0-40); Albumin 3.2 gm/dL (3.2-5.2); Albumin/Globulin Ratio 1.3 (1.0-2.3); Alkaline Phosphatase 72 U/L (39-117); Bilirubin,Direct < 0.2 mg/dL (0.0-0.3); Blood Urea Nitrogen 20 mg/dl (8-23); Gamma Glutamyl Transpeptidase 222 U/L (8-61); Uric Acid 4.7 mg/dL (2.5-8.0)
[2018-02-17] MEDS: ACETAMINOPHEN 500 MG TABLET PO PRN ×2 (07:46→21:07)
[2018-02-17] MEDS: glipiZIDE 5 MG TAB.XL.24H PO SCH ×2 (07:47→17:30)
[2018-02-17] MEDS: CILOSTAZOL 100 MG TABLET PO SCH ×2 (07:47→17:30)
[2018-02-17] MEDS: INSULIN LISPRO 1 UNIT/0.01 ML UNIT SQ SCH ×4 (08:06→21:06)
[2018-02-17] MEDS: GABAPENTIN 300 MG CAPSULE PO SCH ×3 (08:07→21:07)
[2018-02-17] MEDS: sitaGLIPtin 100 MG TABLET PO SCH (08:07)
[2018-02-17] MEDS: OXYBUTYNIN CHLORIDE 5 MG TAB.XL.24H PO SCH (08:07)
[2018-02-17] MEDS: FINASTERIDE 5 MG TABLET PO SCH (08:07)
[2018-02-17] MEDS: ZINC SULFATE 50 MG CAPSULE PO SCH (08:07)
[2018-02-17] MEDS: DOCUSATE SODIUM 100 MG CAPSULE PO SCH ×2 (08:08→21:08)
[2018-02-17] MEDS: ASPIRIN 325 MG ENTERIC COATED TABLET PO SCH ×2 (08:08→21:07)
[2018-02-17] MEDS ORDERED: FUROSEMIDE 20 MG/2 ML VIAL IV ONE (08:50)
[2018-02-17] MEDS: LEVOFLOXACIN 750 MG/150 ML BAG IV SCH (08:59)
--- NOTE | 2018-02-17 09:27 | Orthopedic Progress Note ---
Subjective Patient information: Note initiated : 02/17/18 at 9:24 am Service Date, if different from initiated Date: [] Patient: Robert Hammer 87 y/o M admitted on 02/15/18 for Right Total Hip Arthroplasty. Chief Complaint: [] Principal diagnosis: s/p R total hip arthroplasty Interval history: c/o pain in the leg, controlled with meds Objective Vital signs: Vital Signs Temp Pulse Resp BP Pulse Ox 02/17/18 07:55 97.9 F 16 109/60 96 02/17/18 07:34 94 02/17/18 07:33 80 16 02/17/18 05:01 99/52 02/17/18 04:01 98.2 F 18 102/53 95 02/17/18 03:01 102/52 02/17/18 02:02 86/49 02/17/18 00:01 98.3 F 18 95/59 96 02/16/18 21:01 104/54 02/16/18 20:01 98.2 F 20 86/45 90 02/16/18 19:31 107 H 18 93 02/16/18 19:01 86/41 81 L 02/16/18 19:00 94 02/16/18 18:01 89/54 02/16/18 17:01 88/60 93 02/16/18 16:01 98.7 F 102 H 22 100/56 94 02/16/18 15:01 86/61 97 02/16/18 14:01 92/50 02/16/18 13:00 87/52 02/16/18 12:01 97.2 F 104 H 20 87/56 95 02/16/18 11:54 74/40 02/16/18 11:49 76/51 02/16/18 11:48 75/51 02/16/18 11:47 97.2 F 104 H 20 80/45 95 02/16/18 11:01 108/52 02/16/18 10:31 93/48 02/16/18 10:06 82/55 02/16/18 10:01 77/51 02/16/18 09:52 93/49 100 02/16/18 09:30 18 Intake and Output 02/16/18 02/17/18 02/17/18 21:59 05:59 13:59 Intake Total 390 / 390 360 / 360 Output Total 1300 / 1300 700 / 700 Balance -910 / -910 -340 / -340 Intake: IV 150 / 150 Oral 240 / 240 360 / 360 Output: Urine Catheter Amount 1300 / 1300 700 / 700 Other: Meal Dinner Percent of Meal Consumed 100% Feeding Ability Assist with Tray Set Up Weight 219 lb 1.92 oz Intake & Output: Intake & Output 02/16/18 02/17/18 02/17/18 21:59 05:59 13:59 Intake Total 390 / 390 360 / 360 Output Total 1300 / 1300 700 / 700 Balance -910 / -910 -340 / -340 Weight 219 lb 1.92 oz Intake: IV 150 / 150 Oral 240 / 240 360 / 360 Output: Urine Catheter Amount 1300 / 1300 700 / 700 Other: Meal Dinner Percent of Meal Consumed 100% Feeding Ability Assist with Tray Set Up Dressing: Yes clean, Yes dry, Yes intact Neurological exam IM: Yes motor sensory intact - Labs CBC & BMP: 02/17/18 03:50 02/17/18 03:50 Labs: Orthopedic Labs 02/15/18 02/09/18 15:00 16:25 PT 13.8 INR 1.1 D-Dimer 1.89 H 02/17/18 02/16/18 02/15/18 03:50 03:45 15:00 Hgb 9.9 L 10.3 L 11.0 L Hct 30.4 L 31.2 L 32.7 L 02/09/18 16:25 Hgb 13.6 Hct 40.9 L Assessment and Plan (1) Status post total hip replacement, right POD#2-orthopedically stable -mobilize if possible -med mgmt per hospitalists Status: Acute
[2018-02-17] MEDS: HYDROCODONE/APAP 7.5/325MG TABLET PO PRN ×2 (10:20→22:55)
[2018-02-17] MEDS ORDERED: DIGOXIN 500 MCG/2 ML AMPUL IV ONE (15:09)
--- NOTE | 2018-02-17 15:09 | Internal Med Progress Note ---
Medical - PN: Subj Patient information: Note initiated : 02/17/18 at 3:06 pm Service Date, if different from initiated Date: [] Patient: Robert Hammer 87 y/o M admitted on 02/15/18 for Right Total Hip Arthroplasty. Chief Complaint: [] Interval history: Mr. Hammer is a 87 year old Male with history of diabetes peripheral vascular disease atrial fibrillation and other medical issues was admitted to the [facility] service for an elective right hip replacement surgery. The patient had no symptoms in the preop. According to the patient. Urine the Intra-Op. The patient developed hypotension after administration of anesthesia. The patient needed pressor support intraoperatively and was hypotensive in the postop. Patient's blood pressure stabilized later and was moved to the ICU for close monitoring. Medicine was consulted for further management. EKG done postop showed no acute changes compared to the EKG done preop. On my evaluation patient was lying comfortably in bed, on 4-6 L of oxygen. This is a new oxygen requirement for the patient. He denies use of oxygen in the past however does have history of emphysema and COPD. The patient denies any chest pain shortness of breath cough fever headache dizziness abdominal pain nausea vomiting palpitations or any other acute concerning symptom at present or in the preop. Patient feels that he is doing well at this time and was anxious to eat some food. Chest x-ray done showed CHF versus fluid overload superimposed on moderate pulmonary fibrosis. Labs ordered. Patient's echocardiogram done 06/03/2017 shows ejection fraction of 55-60%, normal LV thickness, bilateral atrial enlargement, mild RV chamber enlargement. 02/17 Patient seen and examined, no acute overnight events. Blood pressure is in the lower end of normal. He is tolerating Lasix, continue with gentle diuresis. He still hypoxic needing oxygen. He denies any other acute complaints or concerns. He refuses to acknowledge that he has a history of atrial fibrillation, notes that he had irregular heartbeat since 1940s. He also does not wish to acknowledge the fact that he has COPD. He has moderate emphysema on his chest CT. Continue steroids and duo nebs for now. Continue gentle diuresis as much as blood pressure allows. Continue working with physical therapy. The patient did get tachycardic over some activity yesterday and did have tachycardia at baseline 2. He was given digoxin 1 yesterday I will repeat another dose today. Pertinent ROS: Denies headache, dizziness Denies chest pain, palpitations Denies cough or shortness of breath Denies abdominal pain, nausea or vomiting. - Constitutional Vitals: Vital Signs Temp Pulse Resp BP Pulse Ox 97.7 F 80 16 116/102 95 02/17/18 11:55 02/17/18 07:33 02/17/18 11:55 02/17/18 11:55 02/17/18 11:55 Period Temp Pulse Resp BP Sys/Wu Pulse Ox Last 24 Hr 97.7 F-98.7 F 80-115 16-22 86-116/41-102 81-96 Intake and Output 02/17/18 02/17/18 02/17/18 05:59 13:59 21:59 Intake Total 360 / 360 750 / 750 Output Total 700 / 700 750 / 750 Balance -340 / -340 0 / 0 Intake & Output: Intake & Output 02/17/18 02/17/18 02/17/18 05:59 13:59 21:59 Intake Total 360 / 360 750 / 750 Output Total 700 / 700 750 / 750 Balance -340 / -340 0 / 0 Intake: IV 150 / 150 Oral 360 / 360 600 / 600 Output: Urine Catheter Amount 700 / 700 750 / 750 Other: Meal Lunch Percent of Meal Consumed 100% Feeding Ability Independent Exam: Constitutional; Afebrile, cooperative, alert, not in distress. Eyes- No icterus, , No periorbital swelling Ears- Ext ear normal, hearing normal to conversation. Neck- Midline trachea, supple Respiratory system: Air Entry equal on both sides, No crackles or wheezing, no rhonchi. CVS- Rate rhythm irregular, S1,S2 heard, no gallop, no rub. Abdomen- Soft nontender abdomen, no organomegaly, no tenderness, no guarding or rigidity, [employer]- AOOx3, moving all extremities, no gross focal deficit noted. Medical - PN: Obj Da - Labs CBC & Chem 7: 02/17/18 03:50 02/17/18 03:50 Labs: Abnormal Lab Results 02/17/18 02/17/18 02/16/18 03:50 03:50 03:45 WBC 14.8 H RBC 3.13 L Hgb 9.9 L 10.3 L Hct 30.4 L 31.2 L RDW 15.9 H Gran % 93.4 H Lymph % (Auto) 4.0 L Gran # 13.8 H Lymph # (Auto) 0.6 L D-Dimer Glucose 289 H Calcium Phosphorus 2.1 L GGT 222 H NT-Pro-B Natriuret Pep Total Protein 5.6 L Globulin 02/15/18 02/15/18 02/15/18 15:00 15:00 15:00 WBC RBC 3.41 L Hgb 11.0 L Hct 32.7 L RDW 16.0 H Gran % 92.7 H Lymph % (Auto) 4.2 L Gran # Lymph # (Auto) 0.4 L D-Dimer 1.89 H Glucose 252 H Calcium 8.4 L Phosphorus GGT 268 H NT-Pro-B Natriuret Pep 1085.0 H Total Protein 5.6 L Globulin 2.1 L Meds: Medications Acetaminophen (Tylenol) 1,000 mg PO Q4HP PRN PRN Reason: Pain Last Admin: 02/17/18 07:46 Dose: 1,000 mg Hydrocodone Bitart/Acetaminophen ([place] 7.5/325mg) 0 tab PO Q4HP PRN PRN Reason: PAIN LEVEL 3-6 Last Admin: 02/17/18 10:20 Dose: 1 tab Albuterol/Ipratropium (Duoneb) 3 ml NEB Q6HRT [facility] Last Admin: 02/17/18 07:28 Dose: 3 ml Alprazolam (Xanax) 0.25 mg PO DAILYP PRN PRN Reason: Anxiety Last Admin: 02/15/18 21:14 Dose: 0.25 mg Amitriptyline HCl (Elavil) 75 mg PO HS [facility] Last Admin: 02/16/18 21:05 Dose: 75 mg Aspirin (Ecotrin) 325 mg PO BID [facility] Last Admin: 02/17/18 08:08 Dose: 325 mg Bisacodyl (Dulcolax) 10 mg [place] Q2-3DAYS PRN PRN Reason: Constipation Cilostazol (Pletal) 100 mg PO BIDAC [facility] Last Admin: 02/17/18 07:47 Dose: 100 mg Dextrose (Dextrose 50%) 0 ml IV UD PRN PRN Reason: Hypoglycemia Diagnostic Test (Pha) (Accu-Chek) 1 each FS ACHS [facility] Last Admin: 02/17/18 12:00 Dose: 1 each Docusate Sodium (Colace) 100 mg PO BID [facility] Last Admin: 02/17/18 08:08 Dose: 100 mg Finasteride (Proscar) 5 mg PO QDAY [facility] Last Admin: 02/17/18 08:07 Dose: 5 mg Gabapentin (Neurontin) 300 mg PO TID [facility] Last Admin: 02/17/18 08:07 Dose: 300 mg Glipizide (Glucotrol Xl) 5 mg PO BIDCC [facility] Last Admin: 02/17/18 07:47 Dose: 5 mg Glucose (Insta-Glucose) 15 gm PO PRN PRN PRN Reason: Hypoglycemia Levofloxacin (Levaquin) 750 mg in 150 mls @ 100 mls/hr IV Q24H [facility] Stop: 02/20/18 17:29 Last Infusion: 02/17/18 10:29 Dose: Infused Insulin Human Lispro (Humalog) 0 unit SQ ACHS [facility] PRN Reason: Protocol Last Admin: 02/17/18 12:37 Dose: 12 unit Magnesium Hydroxide (Milk Of Magnesia) 30 ml PO BIDP PRN PRN Reason: Constipation Methocarbamol (Robaxin) 500 mg IV Q6HP PRN PRN Reason: Muscle Spasm Methylprednisolone Sodium Succinate (Solu-Medrol) 40 mg IV DAILY [facility] Stop: 02/21/18 08:59 Oxybutynin Chloride (Ditropan Xl) 10 mg PO DAILY [facility] Last Admin: 02/17/18 08:07 Dose: 10 mg Pioglitazone HCl (Actos) 45 mg PO DAILYP PRN PRN Reason: hyperglycemia Simvastatin (Zocor) 20 mg PO HS [facility] Last Admin: 02/16/18 21:05 Dose: 20 mg Sitagliptin Phosphate (Januvia) 100 mg PO DAILY [facility] Last Admin: 02/17/18 08:07 Dose: 100 mg Tamsulosin HCl (Flomax) 0.8 mg PO HS [facility] Last Admin: 02/16/18 21:05 Dose: 0.8 mg Throat Lozenges (Cepacol) 1 lozenge PO PRN PRN PRN Reason: Sore Throat Zinc Sulfate (Zinc) 100 mg PO DAILY [facility] Last Admin: 02/17/18 08:07 Dose: 100 mg Medical - PN: A/P - Time Spent With Patient Total time spent is greater than 50% in coordination of care (as documented) at patient's floor/unit and/or counseling patient: - Narrative A/P Narrative: A/p Intraop and post op Hypotension: Likely secondary to anesthetic medication. Blood pressure stable at this point, but on the lower end of normal, Continue to monitor closely. labs stable, CT Angio neg for PE. Echo ordered. IV lasix for possible chf repeat dose today . related. vs infection. Procalcitonin is neg, But CT did show possible infiltrate. start on levofloxacin. Hypoxia: Chest x-ray shows pulmonary fibrosis and mild fluid overload CHF. Patient did get some Lasix with improvement in symptoms according to documentation. repeat dose of lasix given today . Patient did not have wheezing on exam did not have shortness of breath or cough. Duo nebs every 6 hours for now. IV steroids were started but will switch to oral steroids now , continue IV levofloxacin added after CT findings of emphysema and pt needing increased oxygen. CT showed possibl infection, possible chf, and moderate emphysema. DM: Glucose level reviewed, home medications renewed. continue sliding scale regime. given that we have started steroids. Peripheral vascular disease-continue statin and aspirin. Atrial fibrillation-patient is on aspirin for same. Not on anticoagulation. Reviewed cardiology note did have history of noncompliance with medication as well as bleeding complications therefore anticoagulation has not been continued. HR was controlled till this AM then went in RVR Plan to monitor, use digoxin for rate control given hypotension. DVT asa bid as per ortho protocol Medical - PN: Qual - VTE Deep Vein Thrombosis/Pulmonary Embolism Present on Admission: No
[2018-02-17] MEDS: AMITRIPTYLINE 25 MG TABLET PO SCH (21:07)
[2018-02-17] MEDS: TAMSULOSIN 0.4 MG CAPSULE PO SCH (21:07)
[2018-02-17] MEDS: SIMVASTATIN 20 MG TABLET PO SCH (21:08)
[2018-02-18] MEDS: IPRATROPIUM/ALBUTEROL 3 ML AMPUL.NEB NEB SCH ×4 (01:29→19:48)
[2018-02-18 05:57] LABS: Basophils # (Auto) 0 K/mcL (0.0-0.3); Basophils % (Auto) 0.1 % (0.0-2.0); Eosinophils # (Auto) 0.3 K/mcL (0.0-0.7); Granulocytes % (Auto) 80.5 % (38.0-78.0); Lymphocytes # (Auto) 1.3 K/mcL (1.5-4.8); Lymphocytes % (Auto) 10.3 % (15.5-49.0); Mean Cell Volume 97.5 fL (80.0-100.0); Mean Corpuscular HGB Conc 33.4 g/dL (31.0-36.0); Mean Corpuscular Hemoglobin 32.5 pg (26.0-34.0); Monocytes # (Auto) 0.9 K/mcL (0.1-0.9); Monocytes % (Auto) 7.1 % (1.0-12.0); Platelet Count 160 K/mcL (140-440); RBC 2.95 M/mcL (4.50-5.90); Red Cell Distribution Width 15.9 % (11.5-14.5)
[2018-02-18 06:40] LABS: ALT/SGPT 19 U/l (0-40); Albumin 2.9 gm/dL (3.2-5.2); Albumin/Globulin Ratio 1.2 (1.0-2.3); Alkaline Phosphatase 72 U/L (39-117); Bilirubin,Direct < 0.2 mg/dL (0.0-0.3); Blood Urea Nitrogen 28 mg/dl (8-23); Gamma Glutamyl Transpeptidase 220 U/L (8-61); Uric Acid 4.8 mg/dL (2.5-8.0)
[2018-02-18] MEDS ORDERED: FUROSEMIDE 20 MG/2 ML VIAL IV ONE (08:19)
[2018-02-18] MEDS: INSULIN LISPRO 1 UNIT/0.01 ML UNIT SQ SCH ×4 (08:28→21:47)
[2018-02-18] MEDS: GABAPENTIN 300 MG CAPSULE PO SCH ×3 (08:46→21:19)
[2018-02-18] MEDS: DOCUSATE SODIUM 100 MG CAPSULE PO SCH ×2 (08:46→21:19)
[2018-02-18] MEDS: predniSONE 20 MG TABLET PO SCH (08:46)
[2018-02-18] MEDS: ASPIRIN 325 MG ENTERIC COATED TABLET PO SCH ×2 (08:46→21:19)
[2018-02-18] MEDS: HYDROCODONE/APAP 7.5/325MG TABLET PO PRN (08:46)
[2018-02-18] MEDS: MAGNESIUM HYDROXIDE 30 ML ORAL.SUSP PO PRN (08:46)
[2018-02-18] MEDS: OXYBUTYNIN CHLORIDE 5 MG TAB.XL.24H PO SCH (08:47)
--- NOTE | 2018-02-18 08:47 | Internal Med Progress Note ---
Medical - PN: Subj Patient information: Note initiated : 02/18/18 at 8:41 am Service Date, if different from initiated Date: [] Patient: Robert Hammer 87 y/o M admitted on 02/15/18 for Right Total Hip Arthroplasty. Chief Complaint: [] Interval history: Mr. Hammer is a 87 year old Male with history of diabetes peripheral vascular disease atrial fibrillation and other medical issues was admitted to the [facility] for an elective right hip replacement surgery. The patient had no symptoms in the preop. According to the patient. Urine the Intra-Op. The patient developed hypotension after administration of anesthesia. The patient needed pressor support intraoperatively and was hypotensive in the postop. Patient's blood pressure stabilized later and was moved to the ICU for close monitoring. Medicine was consulted for further management. EKG done postop showed no acute changes compared to the EKG done preop. On my evaluation patient was lying comfortably in bed, on 4-6 L of oxygen. This is a new oxygen requirement for the patient. He denies use of oxygen in the past however does have history of emphysema and COPD. The patient denies any chest pain shortness of breath cough fever headache dizziness abdominal pain nausea vomiting palpitations or any other acute concerning symptom at present or in the preop. Patient feels that he is doing well at this time and was anxious to eat some food. Chest x-ray done showed CHF versus fluid overload superimposed on moderate pulmonary fibrosis. Labs ordered. Patient's echocardiogram done 06/03/2017 shows ejection fraction of 55-60%, normal LV thickness, bilateral atrial enlargement, mild RV chamber enlargement. 02/17 Patient seen and examined, no acute overnight events. Blood pressure is in the lower end of normal. He is tolerating Lasix, continue with gentle diuresis. He still hypoxic needing oxygen. He denies any other acute complaints or concerns. He refuses to acknowledge that he has a history of atrial fibrillation, notes that he had irregular heartbeat since 1940s. He also does not wish to acknowledge the fact that he has COPD. He has moderate emphysema on his chest CT. Continue steroids and duo nebs for now. Continue gentle diuresis as much as blood pressure allows. Continue working with physical therapy. The patient did get tachycardic over some activity yesterday and did have tachycardia at baseline 2. He was given digoxin 1 yesterday I will repeat another dose today. 5/5 Pt seen examined, and the bed comfortably. Denies any acute complaints. No chest pain shortness of breath abdominal pain nausea vomiting reported. He was unable to urinate well overnight needed to be straight cath. He is on Flomax as well as Ditropan for overactive bladder and BPH, monitor today. Will hold ditropan today and see how the patient does. Wean off oxygen as tolerated. Patient still requires oxygen at 2 L. Activity with physical therapy Patient's blood pressure is on the lower end of normal but stable patient is asymptomatic with his blood pressure. Pertinent ROS: Denies headache, dizziness Denies chest pain, palpitations Denies cough or shortness of breath Denies abdominal pain, nausea or vomiting. - Constitutional Vitals: Vital Signs Temp Pulse Resp BP Pulse Ox 97.1 F 87 16 103/58 92 02/18/18 07:55 02/18/18 07:38 02/18/18 07:55 02/18/18 07:55 02/18/18 07:55 Period Temp Pulse Resp BP Sys/Wu Pulse Ox Last 24 Hr 97.1 F-98.8 F 84-102 16-20 74-116/49-102 81-100 Intake and Output 02/17/18 02/18/18 02/18/18 21:59 05:59 13:59 Intake Total 340 / 340 400 / 400 Output Total 375 / 375 Balance -35 / -35 400 / 400 Weight 218 lb Intake & Output: Intake & Output 02/17/18 02/18/18 02/18/18 21:59 05:59 13:59 Intake Total 340 / 340 400 / 400 Output Total 375 / 375 Balance -35 / -35 400 / 400 Weight 218 lb Intake: Oral 340 / 340 GI Tube Flush 400 / 400 Output: Urine Catheter Amount 375 / 375 Other: Meal Egg salad sandwich [place] snack cup Percent of Meal Consumed 100% 100% Exam: Constitutional; Afebrile, cooperative, alert, not in distress. Eyes- No icterus, , No periorbital swelling Ears- Ext ear normal, hearing normal to conversation. Neck- Midline trachea, supple Respiratory system: Air Entry equal on both sides, No crackles or wheezing, no rhonchi. CVS- Rate rhythm irregular, S1,S2 heard, no gallop, no rub. 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 Medical - PN: Obj Da - Labs CBC & Chem 7: 02/18/18 03:50 02/18/18 03:50 Labs: Abnormal Lab Results 02/18/18 02/18/18 02/17/18 03:50 03:50 03:50 WBC 12.7 H RBC 2.95 L Hgb 9.6 L Hct 28.7 L RDW 15.9 H Gran % 80.5 H Lymph % (Auto) 10.3 L Gran # 10.2 H Lymph # (Auto) 1.3 L D-Dimer BUN 28 H Glucose 135 H 289 H Calcium Phosphorus 2.1 L GGT 220 H 222 H NT-Pro-B Natriuret Pep Total Protein 5.4 L 5.6 L Albumin 2.9 L Globulin 02/17/18 02/16/18 02/15/18 03:50 03:45 15:00 WBC 14.8 H RBC 3.13 L Hgb 9.9 L 10.3 L Hct 30.4 L 31.2 L RDW 15.9 H Gran % 93.4 H Lymph % (Auto) 4.0 L Gran # 13.8 H Lymph # (Auto) 0.6 L D-Dimer 1.89 H BUN Glucose Calcium Phosphorus GGT NT-Pro-B Natriuret Pep Total Protein Albumin Globulin 02/15/18 02/15/18 15:00 15:00 WBC RBC 3.41 L Hgb 11.0 L Hct 32.7 L RDW 16.0 H Gran % 92.7 H Lymph % (Auto) 4.2 L Gran # Lymph # (Auto) 0.4 L D-Dimer BUN Glucose 252 H Calcium 8.4 L Phosphorus GGT 268 H NT-Pro-B Natriuret Pep 1085.0 H Total Protein 5.6 L Albumin Globulin 2.1 L Meds: Medications Acetaminophen (Tylenol) 1,000 mg PO Q4HP PRN PRN Reason: Pain Last Admin: 02/17/18 21:07 Dose: 1,000 mg Hydrocodone Bitart/Acetaminophen ([place] 7.5/325mg) 0 tab PO Q4HP PRN PRN Reason: PAIN LEVEL 3-6 Last Admin: 02/17/18 22:55 Dose: 1 tab Albuterol/Ipratropium (Duoneb) 3 ml NEB Q6HRT [facility] Last Admin: 02/18/18 07:37 Dose: 3 ml Alprazolam (Xanax) 0.25 mg PO DAILYP PRN PRN Reason: Anxiety Last Admin: 02/15/18 21:14 Dose: 0.25 mg Amitriptyline HCl (Elavil) 75 mg PO HS [facility] Last Admin: 02/17/18 21:07 Dose: 75 mg Aspirin (Ecotrin) 325 mg PO BID [facility] Last Admin: 02/17/18 21:07 Dose: 325 mg Bisacodyl (Dulcolax) 10 mg [place] Q2-3DAYS PRN PRN Reason: Constipation Cilostazol (Pletal) 100 mg PO BIDAC [facility] Last Admin: 02/17/18 17:30 Dose: 100 mg Dextrose (Dextrose 50%) 0 ml IV UD PRN PRN Reason: Hypoglycemia Diagnostic Test (Pha) (Accu-Chek) 1 each FS ACHS [facility] Last Admin: 02/18/18 08:00 Dose: 1 each Docusate Sodium (Colace) 100 mg PO BID [facility] Last Admin: 02/17/18 21:08 Dose: 100 mg Finasteride (Proscar) 5 mg PO QDAY [facility] Last Admin: 02/17/18 08:07 Dose: 5 mg Gabapentin (Neurontin) 300 mg PO TID [facility] Last Admin: 02/17/18 21:07 Dose: 300 mg Glipizide (Glucotrol Xl) 5 mg PO BIDCC [facility] Last Admin: 02/17/18 17:30 Dose: 5 mg Glucose (Insta-Glucose) 15 gm PO PRN PRN PRN Reason: Hypoglycemia Levofloxacin (Levaquin) 750 mg in 150 mls @ 100 mls/hr IV Q24H [facility] Stop: 02/20/18 17:29 Last Infusion: 02/17/18 10:29 Dose: Infused Insulin Human Lispro (Humalog) 0 unit SQ ACHS [facility] PRN Reason: Protocol Last Admin: 02/18/18 08:28 Dose: Not Given Magnesium Hydroxide (Milk Of Magnesia) 30 ml PO BIDP PRN PRN Reason: Constipation Methocarbamol (Robaxin) 500 mg IV Q6HP PRN PRN Reason: Muscle Spasm Last Admin: 02/17/18 22:56 Dose: 500 mg Oxybutynin Chloride (Ditropan Xl) 10 mg PO DAILY [facility] Last Admin: 02/17/18 08:07 Dose: 10 mg Pioglitazone HCl (Actos) 45 mg PO DAILYP PRN PRN Reason: hyperglycemia Prednisone (Prednisone) 40 mg PO [facility] Stop: 02/21/18 07:59 Simvastatin (Zocor) 20 mg PO HS [facility] Last Admin: 02/17/18 21:08 Dose: 20 mg Sitagliptin Phosphate (Januvia) 100 mg PO DAILY [facility] Last Admin: 02/17/18 08:07 Dose: 100 mg Tamsulosin HCl (Flomax) 0.8 mg PO HS [facility] Last Admin: 02/17/18 21:07 Dose: 0.8 mg Throat Lozenges (Cepacol) 1 lozenge PO PRN PRN PRN Reason: Sore Throat Zinc Sulfate (Zinc) 100 mg PO DAILY [facility] Last Admin: 02/17/18 08:07 Dose: 100 mg Medical - PN: A/P - Time Spent With Patient Total time spent is greater than 50% in coordination of care (as documented) at patient's floor/unit and/or counseling patient: - Narrative A/P Narrative: A/p Intraop and post op Hypotension: Likely secondary to anesthetic medication. BP stable, pt asymptomatic, not on any meds, likely medication related in the radha op period. monitor for now. workup neg so far CHF: Noted on X ray, elevated bnp, IV lasix daily, clinically improving. repeat CXR Today, Echo done shows normal lv function good IVC collapse with inspiration. Hypoxia: CT shows possible pna/ atelectasis, no pe, on antibiotics, duonebs and steroids COPD: on duonebs for now, on 2 L oxygen, no wheeze on exam, but given increased oxygen needs, on steroids and duonebs, monitor. DM: Glucose level reviewed, home medications renewed. continue sliding scale regime. given that we have started steroids. Peripheral vascular disease-continue statin and aspirin. BPH with bladder overactivity: She does experiencing some urinary retention. See how he does today, hold AM ditropan today. Atrial fibrillation-patient is on aspirin for same. Not on anticoagulation. Reviewed cardiology note did have history of noncompliance with medication as well as bleeding complications therefore anticoagulation has not been continued. HR was controlled till this AM then went in RVR Plan to monitor, use digoxin for rate control given hypotension. DVT asa bid as per ortho protocol encourage activity with PT d/c once off oxygen. Medical - PN: Qual - VTE Deep Vein Thrombosis/Pulmonary Embolism Present on Admission: No
[2018-02-18] MEDS: LEVOFLOXACIN 750 MG/150 ML BAG IV SCH (08:59)
[2018-02-18] MEDS ORDERED: methylPREDNISolone SOD SUCC 40 MG/ML VIAL IV SCH (09:00)
[2018-02-18] MEDS: ZINC SULFATE 50 MG CAPSULE PO SCH (09:04)
[2018-02-18] MEDS: FINASTERIDE 5 MG TABLET PO SCH (09:04)
[2018-02-18] MEDS: sitaGLIPtin 100 MG TABLET PO SCH (09:04)
[2018-02-18] MEDS: CILOSTAZOL 100 MG TABLET PO SCH ×2 (09:04→17:29)
[2018-02-18] MEDS: glipiZIDE 5 MG TAB.XL.24H PO SCH ×2 (09:05→17:30)
--- NOTE | 2018-02-18 09:27 | XRay Report ---
HISTORY: Reason for Exam:chf FINDINGS: Prominent increased interstitial lung markings are present bilaterally. There has been moderate improvement since 02/15/18. The heart is still mildly enlarged but is smaller today than it was previously. No pleural effusion is present. There is no mass or lobar consolidation. IMPRESSION: Improving aeration of both lungs. Patient has underlying emphysema and pulmonary fibrosis. It is difficult to determine how much of the residual interstitial lung disease seen on today's study is due to chronic inflammation/scar and what could be superimposed infection or residual pulmonary vascular congestion. Interpreted and Authenticated by: Gerber Olvera 02/18/18
--- NOTE | 2018-02-18 11:13 | Orthopedic Progress Note ---
Orthopedics - Auxillary Note - Subjective Patient Information: Note initiated : 02/18/18 at 11:12 am Service Date, if different from initiated Date: [] Patient: Robert Hammer 87 y/o M admitted on 02/15/18 for Right Total Hip Arthroplasty. Chief Complaint: Mild pain. bandages C/D/I nvi-distal Vital Signs Temp Pulse Resp BP Pulse Ox 02/18/18 07:55 97.1 F 16 103/58 92 02/18/18 07:38 87 16 92 02/18/18 04:20 98.8 F 18 94 02/18/18 03:59 89/61 02/18/18 01:09 87/60 02/18/18 00:03 85/49 02/18/18 00:01 98.3 F 20 83/53 94 02/17/18 21:35 89/53 02/17/18 20:23 81/52 02/17/18 20:18 98.8 F 20 81/52 93 02/17/18 19:42 85 18 96 02/17/18 16:01 104/61 02/17/18 15:32 97.5 F 18 101/63 94 02/17/18 15:07 101/63 93 02/17/18 14:18 102 H 18 02/17/18 14:12 93/61 93 02/17/18 14:09 74/60 81 L 02/17/18 12:56 89/59 02/17/18 11:55 97.7 F 16 116/102 95 02/17/18 11:31 116/102 Intake and Output 02/17/18 02/18/18 02/18/18 21:59 05:59 13:59 Intake Total 340 / 340 400 / 400 150 / 150 Output Total 375 / 375 Balance -35 / -35 400 / 400 150 / 150 Intake: IV 150 / 150 Oral 340 / 340 GI Tube Flush 400 / 400 Output: Urine Catheter Amount 375 / 375 Other: Meal Egg salad sandwich [place] snack cup Percent of Meal Consumed 100% 100% Weight 218 lb Laboratory Results - last 24 hr 02/18/18 02/18/18 03:50 03:50 WBC 12.7 H RBC 2.95 L Hgb 9.6 L Hct 28.7 L MCV 97.5 MCH 32.5 MCHC 33.4 RDW 15.9 H Plt Count 160 MPV 8.1 Gran % 80.5 H Lymph % (Auto) 10.3 L [place] % (Auto) 7.1 Eos % (Auto) 2.0 Baso % (Auto) 0.1 Gran # 10.2 H Lymph # (Auto) 1.3 L [place] # (Auto) 0.9 Eos # (Auto) 0.3 Baso # (Auto) 0 Sodium 137 Potassium 4.1 Chloride 101 Carbon Dioxide 28 Anion Gap 8.0 BUN 28 H Creatinine 0.8 GFR Calculation 81 Glucose 135 H Uric Acid 4.8 Calcium 8.6 Phosphorus 2.9 Magnesium 1.9 Total Bilirubin 0.4 Direct Bilirubin < 0.2 GGT 220 H AST 27 ALT 19 Alkaline Phosphatase 72 Lactate Dehydrogenase 180 Total Protein 5.4 L Albumin 2.9 L Globulin 2.5 Albumin/Globulin Ratio 1.2 Triglycerides 42 s/p R CHALO-stable mobilize with PT Change dressing today to Aquacel. cont medical management per hospitalist. tentative discharge Tuesday02/20/18
[2018-02-18] MEDS ORDERED: MAGNESIUM SULFATE 2 GM/50 ML BAG IV ONE (13:02)
[2018-02-18] MEDS: SIMVASTATIN 20 MG TABLET PO SCH (21:19)
[2018-02-18] MEDS: AMITRIPTYLINE 25 MG TABLET PO SCH (21:19)
[2018-02-18] MEDS: TAMSULOSIN 0.4 MG CAPSULE PO SCH (21:19)
[2018-02-18] MEDS: ACETAMINOPHEN 500 MG TABLET PO PRN (22:10)
[2018-02-18] MEDS: ALPRAZolam 0.25 MG TABLET PO PRN (23:13)
[2018-02-19] MEDS: IPRATROPIUM/ALBUTEROL 3 ML AMPUL.NEB NEB SCH ×4 (03:28→19:41)
[2018-02-19 05:44] LABS: Basophils # (Auto) 0 K/mcL (0.0-0.3); Basophils % (Auto) 0.3 % (0.0-2.0); Eosinophils # (Auto) 0 K/mcL (0.0-0.7); Eosinophils % (Auto) 0.1 % (0.0-7.0); Lymphocytes # (Auto) 1.2 K/mcL (1.5-4.8); Lymphocytes % (Auto) 10.7 % (15.5-49.0); Mean Cell Volume 97.3 fL (80.0-100.0); Mean Corpuscular HGB Conc 32.7 g/dL (31.0-36.0); Mean Corpuscular Hemoglobin 31.8 pg (26.0-34.0); Monocytes # (Auto) 0.8 K/mcL (0.1-0.9); Monocytes % (Auto) 6.9 % (1.0-12.0); Platelet Count 170 K/mcL (140-440); RBC 2.94 M/mcL (4.50-5.90)
[2018-02-19 06:22] LABS: ALT/SGPT 32 U/l (0-40); Albumin 3.1 gm/dL (3.2-5.2); Albumin/Globulin Ratio 1.3 (1.0-2.3); Alkaline Phosphatase 84 U/L (39-117); Bilirubin,Direct < 0.2 mg/dL (0.0-0.3); Blood Urea Nitrogen 27 mg/dl (8-23); Gamma Glutamyl Transpeptidase 261 U/L (8-61); Uric Acid 4.7 mg/dL (2.5-8.0)
[2018-02-19] MEDS: INSULIN LISPRO 1 UNIT/0.01 ML UNIT SQ SCH ×4 (08:32→21:12)
[2018-02-19] MEDS: HYDROCODONE/APAP 7.5/325MG TABLET PO PRN (08:44)
[2018-02-19] MEDS: CILOSTAZOL 100 MG TABLET PO SCH ×2 (08:45→17:47)
[2018-02-19] MEDS: ZINC SULFATE 50 MG CAPSULE PO SCH (08:45)
[2018-02-19] MEDS: predniSONE 20 MG TABLET PO SCH (08:45)
[2018-02-19] MEDS: GABAPENTIN 300 MG CAPSULE PO SCH ×3 (08:46→21:08)
[2018-02-19] MEDS: sitaGLIPtin 100 MG TABLET PO SCH (08:46)
[2018-02-19] MEDS: FINASTERIDE 5 MG TABLET PO SCH (08:46)
[2018-02-19] MEDS: glipiZIDE 5 MG TAB.XL.24H PO SCH ×2 (08:46→17:47)
[2018-02-19] MEDS: ASPIRIN 325 MG ENTERIC COATED TABLET PO SCH ×2 (08:46→21:12)
[2018-02-19] MEDS: DOCUSATE SODIUM 100 MG CAPSULE PO SCH ×2 (08:46→21:09)
[2018-02-19] MEDS: OXYBUTYNIN CHLORIDE 5 MG TAB.XL.24H PO SCH (08:47)
[2018-02-19] MEDS: MAGNESIUM HYDROXIDE 30 ML ORAL.SUSP PO PRN (08:47)
[2018-02-19] MEDS: LEVOFLOXACIN 750 MG/150 ML BAG IV SCH (08:56)
[2018-02-19] MEDS ORDERED: FUROSEMIDE 20 MG/2 ML VIAL IV ONE (09:28)
--- NOTE | 2018-02-19 09:40 | Internal Med Progress Note ---
Medical - PN: Subj Patient information: Note initiated : 02/19/18 at 9:38 am Service Date, if different from initiated Date: [] Patient: Robert Hammer 87 y/o M admitted on 02/15/18 for Right Total Hip Arthroplasty. Chief Complaint: [] Interval history: Mr. Hammer is a 87 year old Male with history of diabetes peripheral vascular disease atrial fibrillation and other medical issues was admitted to the [facility] service for an elective right hip replacement surgery. The patient had no symptoms in the preop. According to the patient. Urine the Intra-Op. The patient developed hypotension after administration of anesthesia. The patient needed pressor support intraoperatively and was hypotensive in the postop. Patient's blood pressure stabilized later and was moved to the ICU for close monitoring. Medicine was consulted for further management. EKG done postop showed no acute changes compared to the EKG done preop. On my evaluation patient was lying comfortably in bed, on 4-6 L of oxygen. This is a new oxygen requirement for the patient. He denies use of oxygen in the past however does have history of emphysema and COPD. The patient denies any chest pain shortness of breath cough fever headache dizziness abdominal pain nausea vomiting palpitations or any other acute concerning symptom at present or in the preop. Patient feels that he is doing well at this time and was anxious to eat some food. Chest x-ray done showed CHF versus fluid overload superimposed on moderate pulmonary fibrosis. Labs ordered. Patient's echocardiogram done 06/03/2017 shows ejection fraction of 55-60%, normal LV thickness, bilateral atrial enlargement, mild RV chamber enlargement. 02/17 Patient seen and examined, no acute overnight events. Blood pressure is in the lower end of normal. He is tolerating Lasix, continue with gentle diuresis. He still hypoxic needing oxygen. He denies any other acute complaints or concerns. He refuses to acknowledge that he has a history of atrial fibrillation, notes that he had irregular heartbeat since 1940s. He also does not wish to acknowledge the fact that he has COPD. He has moderate emphysema on his chest CT. Continue steroids and duo nebs for now. Continue gentle diuresis as much as blood pressure allows. Continue working with physical therapy. The patient did get tachycardic over some activity yesterday and did have tachycardia at baseline 2. He was given digoxin 1 yesterday I will repeat another dose today. 5/5 Pt seen examined, and the bed comfortably. Denies any acute complaints. No chest pain shortness of breath abdominal pain nausea vomiting reported. He was unable to urinate well overnight needed to be straight cath. He is on Flomax as well as Ditropan for overactive bladder and BPH, monitor today. Will hold ditropan today and see how the patient does. Wean off oxygen as tolerated. Patient still requires oxygen at 2 L. Activity with physical therapy Patient's blood pressure is on the lower end of normal but stable patient is asymptomatic with his blood pressure. 02/19 Patient seen and examined, in bed comfortable no acute complaints. Vital signs stable he was unable to be last night but is able to be this morning. He had straight cath done overnight. Patient will repeat a dose of Lasix today. Still on oxygen but does not need as much. Clinically he is symptomatic. Is able to ambulate around. Will transfer to medical surgical floor. Continue to hold Ditropan and monitor urine output continue Flomax. Likely discharge tomorrow to rehab Pertinent ROS: Denies headache, dizziness Denies chest pain, palpitations Denies cough or shortness of breath Denies abdominal pain, nausea or vomiting. - Constitutional Vitals: Vital Signs Temp Pulse Resp BP Pulse Ox 97.5 F 83 20 103/68 93 02/19/18 07:35 02/19/18 07:31 02/19/18 07:35 02/19/18 07:35 02/19/18 07:35 Period Temp Pulse Resp BP Sys/Wu Pulse Ox Last 24 Hr 97.5 F-98.9 F 83-99 16-20 73-105/41-68 92-98 Intake and Output 02/18/18 02/19/18 02/19/18 21:59 05:59 13:59 Intake Total 560 / 560 800 / 800 Output Total 950 / 950 1200 / 1200 300 / 300 Balance -390 / -390 -400 / -400 -300 / -300 Weight 218 lb 8 oz Intake & Output: Intake & Output 02/18/18 02/19/18 02/19/18 21:59 05:59 13:59 Intake Total 560 / 560 800 / 800 Output Total 950 / 950 1200 / 1200 300 / 300 Balance -390 / -390 -400 / -400 -300 / -300 Weight 218 lb 8 oz Intake: Oral 560 / 560 GI Tube Flush 800 / 800 Output: Urine Catheter Amount 575 / 575 Void Amount 950 / 950 625 / 625 300 / 300 Other: Meal Dinner egg salad sandwich, peaches Breakfast Percent of Meal Consumed 100% 100% 100% Stool Size Large Stool Color Brown Stool Consistency Soft # Voids 1 2 1 # Bowel Movements 1 Exam: Constitutional; Afebrile, cooperative, alert, not in distress. Eyes- No icterus, , No periorbital swelling Ears- Ext ear normal, hearing normal to conversation. Neck- Midline trachea, supple Respiratory system: Air Entry equal on both sides,bibasilar crackles, no wheeze , no rhonchi. Able to speak full sentences, no accessory muscle use CVS- Rate rhythm regular, S1,S2 heard, no gallop, no rub. 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 Medical - PN: Obj Da - Labs CBC & Chem 7: 02/19/18 03:40 02/19/18 03:40 Labs: Abnormal Lab Results 02/19/18 02/19/18 02/18/18 03:40 03:40 03:50 WBC 11.2 H RBC 2.94 L Hgb 9.4 L Hct 28.6 L RDW 16.0 H Gran % 82.0 H Lymph % (Auto) 10.7 L Gran # 9.2 H Lymph # (Auto) 1.2 L BUN 27 H 28 H Glucose 166 H 135 H Phosphorus GGT 261 H 220 H AST 39 H Total Protein 5.4 L 5.4 L Albumin 3.1 L 2.9 L 02/18/18 02/17/18 02/17/18 03:50 03:50 03:50 WBC 12.7 H 14.8 H RBC 2.95 L 3.13 L Hgb 9.6 L 9.9 L Hct 28.7 L 30.4 L RDW 15.9 H 15.9 H Gran % 80.5 H 93.4 H Lymph % (Auto) 10.3 L 4.0 L Gran # 10.2 H 13.8 H Lymph # (Auto) 1.3 L 0.6 L BUN Glucose 289 H Phosphorus 2.1 L GGT 222 H AST Total Protein 5.6 L Albumin Meds: Medications Acetaminophen (Tylenol) 1,000 mg PO Q4HP PRN PRN Reason: Pain Last Admin: 02/18/18 22:10 Dose: 1,000 mg Hydrocodone Bitart/Acetaminophen ([place] 7.5/325mg) 0 tab PO Q4HP PRN PRN Reason: PAIN LEVEL 3-6 Last Admin: 02/19/18 08:44 Dose: 1 tab Albuterol/Ipratropium (Duoneb) 3 ml NEB Q6HRT [facility] Last Admin: 02/19/18 07:31 Dose: 3 ml Alprazolam (Xanax) 0.25 mg PO DAILYP PRN PRN Reason: Anxiety Last Admin: 02/18/18 23:13 Dose: 0.25 mg Amitriptyline HCl (Elavil) 75 mg PO HS [facility] Last Admin: 02/18/18 21:19 Dose: 75 mg Aspirin (Ecotrin) 325 mg PO BID [facility] Last Admin: 02/19/18 08:46 Dose: 325 mg Bisacodyl (Dulcolax) 10 mg [place] Q2-3DAYS PRN PRN Reason: Constipation Cilostazol (Pletal) 100 mg PO BIDAC [facility] Last Admin: 02/19/18 08:45 Dose: 100 mg Dextrose (Dextrose 50%) 0 ml IV UD PRN PRN Reason: Hypoglycemia Diagnostic Test (Pha) (Accu-Chek) 1 each FS ACHS [facility] Last Admin: 02/19/18 07:35 Dose: 1 each Docusate Sodium (Colace) 100 mg PO BID [facility] Last Admin: 02/19/18 08:46 Dose: 100 mg Finasteride (Proscar) 5 mg PO QDAY [facility] Last Admin: 02/19/18 08:46 Dose: 5 mg Gabapentin (Neurontin) 300 mg PO TID [facility] Last Admin: 02/19/18 08:46 Dose: 300 mg Glipizide (Glucotrol Xl) 5 mg PO BIDCC [facility] Last Admin: 02/19/18 08:46 Dose: 5 mg Glucose (Insta-Glucose) 15 gm PO PRN PRN PRN Reason: Hypoglycemia Levofloxacin (Levaquin) 750 mg in 150 mls @ 100 mls/hr IV Q24H [facility] Stop: 02/20/18 17:29 Last Admin: 02/19/18 08:56 Dose: 100 mls/hr Insulin Human Lispro (Humalog) 0 unit SQ ACHS [facility] PRN Reason: Protocol Last Admin: 02/19/18 08:32 Dose: Not Given Magnesium Hydroxide (Milk Of Magnesia) 30 ml PO BIDP PRN PRN Reason: Constipation Last Admin: 02/18/18 08:46 Dose: 30 ml Methocarbamol (Robaxin) 500 mg IV Q6HP PRN PRN Reason: Muscle Spasm Last Admin: 02/17/18 22:56 Dose: 500 mg Oxybutynin Chloride (Ditropan Xl) 10 mg PO DAILY [facility] Last Admin: 02/19/18 08:47 Dose: Not Given Pioglitazone HCl (Actos) 45 mg PO DAILYP PRN PRN Reason: hyperglycemia Prednisone (Prednisone) 40 mg PO [facility] Stop: 02/21/18 07:59 Last Admin: 02/19/18 08:45 Dose: 40 mg Simvastatin (Zocor) 20 mg PO [facility] Last Admin: 02/18/18 21:19 Dose: 20 mg Sitagliptin Phosphate (Januvia) 100 mg PO DAILY [facility] Last Admin: 02/19/18 08:46 Dose: 100 mg Tamsulosin HCl (Flomax) 0.8 mg PO [facility] Last Admin: 02/18/18 21:19 Dose: 0.8 mg Throat Lozenges (Cepacol) 1 lozenge PO PRN PRN PRN Reason: Sore Throat Zinc Sulfate (Zinc) 100 mg PO DAILY [facility] Last Admin: 02/19/18 08:45 Dose: 100 mg Medical - PN: A/P - Time Spent With Patient Total time spent is greater than 50% in coordination of care (as documented) at patient's floor/unit and/or counseling patient: - Narrative A/P Narrative: A/p Intraop and post op Hypotension: Likely secondary to anesthetic medication. BP stable, pt asymptomatic, not on any meds, likely medication related in the radha op period. monitor for now. workup neg so far, blood pressure is improving slowly CHF: Noted on X ray, elevated bnp, IV lasix daily, clinically improving, repeat chest x-ray shows improving pulmonary congestion., Echo done shows normal lv function good IVC collapse with inspiration. Continue daily Lasix IV Hypoxia: CT shows possible pna/ atelectasis, no pe, on antibiotics, duonebs and steroids COPD: on duonebs for now, on 2 L oxygen, no wheeze on exam, but given increased oxygen needs, on steroids and duonebs, monitor. DM: Glucose level reviewed, home medications renewed. continue sliding scale regime. given that we have started steroids. Peripheral vascular disease-continue statin and aspirin. BPH with bladder overactivity: She does experiencing some urinary retention. See how he does today, intermittent straight cath okay if patient has urinary obstructive symptoms however patient seems to be okay during the daytime and only has issues during the night. For now continue to hold Ditropan as this can worsen patient's urinary retention. Monitor again today Atrial fibrillation-patient is on aspirin for same. Not on anticoagulation. Reviewed cardiology note did have history of noncompliance with medication as well as bleeding complications therefore anticoagulation has not been continued. HR was controlled till this AM then went in RVR Plan to monitor, use digoxin for rate control given hypotension. DVT asa bid as per ortho protocol encourage activity with PT d/c once off oxygen. Medical - PN: Qual - VTE Deep Vein Thrombosis/Pulmonary Embolism Present on Admission: No
[2018-02-19] MEDS ORDERED: BISACODYL 10 MG SUPP.RECT PR PRN (10:08)
[2018-02-19] MEDS ORDERED: METHOCARBAMOL 1,000 MG/10 ML VIAL IV PRN (10:08)
[2018-02-19] MEDS ORDERED: DEXTROSE 50% 50 ML VIAL IV PRN (10:08)
[2018-02-19] MEDS ORDERED: DEXTROSE 31 GM ORAL.SUSP PO PRN (10:08)
[2018-02-19] MEDS ORDERED: MAGNESIUM HYDROXIDE 30 ML ORAL.SUSP PO PRN (10:08)
[2018-02-19] MEDS ORDERED: BENZOCAINE/MENTHOL 1 LOZENGE PO PRN (10:08)
[2018-02-19] MEDS ORDERED: ALPRAZolam 0.25 MG TABLET PO PRN (10:08)
[2018-02-19] MEDS ORDERED: PIOGLITAZONE 15 MG TABLET PO PRN (10:08)
[2018-02-19] MEDS ORDERED: HYDROCODONE/APAP 7.5/325MG TABLET PO PRN (10:08)
--- NOTE | 2018-02-19 10:59 | Orthopedic Progress Note ---
Orthopedics - Auxillary Note - Subjective Patient Information: Note initiated : 02/19/18 at 10:58 am Service Date, if different from initiated Date: [] Patient: Robert Hammer 87 y/o M admitted on 02/15/18 for Right Total Hip Arthroplasty. Chief Complaint: mild pain bandages mild drainage nvi-distal Vital Signs Temp Pulse Resp BP Pulse Ox 02/19/18 08:00 94 02/19/18 07:35 97.5 F 20 103/68 93 02/19/18 07:31 83 18 94 02/19/18 04:44 98.8 F 18 102/68 98 02/19/18 00:47 98.9 F 18 105/64 98 02/18/18 22:44 98.8 F 20 102/48 93 02/18/18 20:13 99 H 16 95 02/18/18 15:24 97.7 F 16 97/51 95 02/18/18 15:14 97/51 95 02/18/18 13:59 93/62 02/18/18 12:04 89/41 02/18/18 11:23 97.6 F 16 89/52 92 02/18/18 11:00 89/52 Intake and Output 02/18/18 02/19/18 02/19/18 21:59 05:59 13:59 Intake Total 560 / 560 800 / 800 360 / 360 Output Total 950 / 950 1200 / 1200 600 / 600 Balance -390 / -390 -400 / -400 -240 / -240 Intake: Oral 560 / 560 360 / 360 GI Tube Flush 800 / 800 Output: Urine Catheter Amount 575 / 575 Void Amount 950 / 950 625 / 625 600 / 600 Other: Meal Dinner egg salad sandwich, peaches Breakfast Percent of Meal Consumed 100% 100% 100% Feeding Ability Independent Stool Size Large Stool Color Brown Stool Consistency Soft # Voids 1 2 1 # Bowel Movements 1 Weight 218 lb 8 oz Laboratory Results - last 24 hr 02/19/18 02/19/18 03:40 03:40 WBC 11.2 H RBC 2.94 L Hgb 9.4 L Hct 28.6 L MCV 97.3 MCH 31.8 MCHC 32.7 RDW 16.0 H Plt Count 170 MPV 8.3 Gran % 82.0 H Lymph % (Auto) 10.7 L [place] % (Auto) 6.9 Eos % (Auto) 0.1 Baso % (Auto) 0.3 Gran # 9.2 H Lymph # (Auto) 1.2 L [place] # (Auto) 0.8 Eos # (Auto) 0 Baso # (Auto) 0 Sodium 137 Potassium 4.4 Chloride 99 Carbon Dioxide 29 Anion Gap 9.0 BUN 27 H Creatinine 0.8 GFR Calculation 81 Glucose 166 H Uric Acid 4.7 Calcium 8.7 Phosphorus 3.0 Magnesium 2.3 Total Bilirubin 0.4 Direct Bilirubin < 0.2 GGT 261 H AST 39 H ALT 32 Alkaline Phosphatase 84 Lactate Dehydrogenase 191 Total Protein 5.4 L Albumin 3.1 L Globulin 2.3 Albumin/Globulin Ratio 1.3 Triglycerides 41 s/p R CHALO-stable mobilize with PT discharge to SNF tomorrow
--- NOTE | 2018-02-19 11:02 | Discharge Summary ---
Providers - Providers Patient information: Note initiated : 02/19/18 at 10:59 am Service Date, if different from initiated Date: [] Patient: Robert Hammer 87 y/o M admitted on 02/15/18 for Right Total Hip Arthroplasty. Chief Complaint: [] Discharge date: 02/19/18 Hospitalization Hospital course: Pt was admitted for a R CHALO. He underwent the procedure on the day of admission. He was then transfered to the ICU due to hypotension likely induced by anesthesia. Pt also required supplemental O2; hospitalist was consulted and managed his medical care. Pt spent 4 nights in the ICU and was discharged to SNF. Will f/u at [facility] in 2 weeks. Will use ASA for DVT prophylaxis. Will do out- pt PT. Discharge diagnosis: R hip OA Exam - Exam Clean and dry: Yes (mild drainage) Weight bearing status: as tolerated Ortho Discharge - HCALO - Patient Instructions Diet: Regular Diet Activity: activity as tolerated Total Hip Protocol: Follow activity instructions as provided by Physical Therapy. Dressing Care: May shower in 2 days - Follow Up Plan Disposition: er [facility] Prognosis: Fair Rehab Potential: Fair Overall status at discharge: patient is progressing back to baseline - Orders For Discharge Prescriptions: Aspirin [Ecotrin] 325 mg PO BID #60 tab.ec HYDROcodone/APAP 5/325MG [[place] 5-325Mg] 1 - 2 tab PO Q4HP PRN #75 tab PRN Reason: Pain Pending Studies Resuscitation Status Full Code Diet Consistent Carbohydrate Diet Start TueFebruary 15 09 Shift Summary 02/19/18 03:49 Shift Summary by Rach Urbina 87yo Full code tele patient. Still in afib with rates in the 90s, up to 120-30s with exertion, still having multiple ectopies, many small runs of wide complex tach (up to 7), asymptomatic. BP has still been soft but MAPS have been above 65. Still on 2L NC sating in the low to mid 90s, SOB/wheezy on exertion. Patient had 1 large soft BM at bedside commode. Was able to urinate small amounts frequently at the beginning fo my shift. Bladder scanned for >650 @0300 , straight cathd for 575 (okayed by Dr. Florence). Given 1000mg tylenol. Was very restless and had a hard time sleeping, given .25mg Xanax around 2200. Initialized on 02/19/18 03:49 - END OF NOTE
[2018-02-19] MEDS: ACETAMINOPHEN 500 MG TABLET PO PRN ×3 (12:43→21:10)
[2018-02-19] MEDS ORDERED: AMITRIPTYLINE 25 MG TABLET PO SCH (21:00)
[2018-02-19] MEDS ORDERED: SIMVASTATIN 20 MG TABLET PO SCH (21:00)
[2018-02-19] MEDS ORDERED: TAMSULOSIN 0.4 MG CAPSULE PO SCH (21:00)
[2018-02-20] MEDS: IPRATROPIUM/ALBUTEROL 3 ML AMPUL.NEB NEB SCH ×2 (00:29→07:20)
[2018-02-20] MEDS: ACETAMINOPHEN 500 MG TABLET PO PRN ×2 (00:29→05:00)
[2018-02-20] MEDS ORDERED: predniSONE 20 MG TABLET PO SCH (08:00)
[2018-02-20 08:16] LABS: ALT/SGPT 35 U/l (0-40); Albumin 3.1 gm/dL (3.2-5.2); Albumin/Globulin Ratio 1.3 (1.0-2.3); Alkaline Phosphatase 87 U/L (39-117); Bilirubin,Direct < 0.2 mg/dL (0.0-0.3); Blood Urea Nitrogen 25 mg/dl (8-23); Gamma Glutamyl Transpeptidase 277 U/L (8-61); Uric Acid 4.2 mg/dL (2.5-8.0)
[2018-02-20 08:17] LABS: Basophils # (Auto) 0 K/mcL (0.0-0.3); Basophils % (Auto) 0 % (0.0-2.0); Eosinophils # (Auto) 0.3 K/mcL (0.0-0.7); Granulocytes % (Auto) 82.7 % (38.0-78.0); Lymphocytes # (Auto) 0.9 K/mcL (1.5-4.8); Lymphocytes % (Auto) 8.8 % (15.5-49.0); Mean Cell Volume 96.7 fL (80.0-100.0); Mean Corpuscular HGB Conc 33.2 g/dL (31.0-36.0); Mean Corpuscular Hemoglobin 32.1 pg (26.0-34.0); Monocytes # (Auto) 0.5 K/mcL (0.1-0.9); Monocytes % (Auto) 5.5 % (1.0-12.0); Platelet Count 186 K/mcL (140-440); Red Cell Distribution Width 15.6 % (11.5-14.5)
[2018-02-20] MEDS: glipiZIDE 5 MG TAB.XL.24H PO SCH (08:49)
[2018-02-20] MEDS: GABAPENTIN 300 MG CAPSULE PO SCH (08:50)
[2018-02-20] MEDS: ASPIRIN 325 MG ENTERIC COATED TABLET PO SCH (08:50)
[2018-02-20] MEDS: DOCUSATE SODIUM 100 MG CAPSULE PO SCH (08:50)
[2018-02-20] MEDS: INSULIN LISPRO 1 UNIT/0.01 ML UNIT SQ SCH ×2 (08:51→12:26)
[2018-02-20] MEDS: CILOSTAZOL 100 MG TABLET PO SCH (08:56)
[2018-02-20] MEDS ORDERED: ZINC SULFATE 50 MG CAPSULE PO SCH (09:00)
[2018-02-20] MEDS ORDERED: OXYBUTYNIN CHLORIDE 5 MG TAB.XL.24H PO SCH (09:00)
[2018-02-20] MEDS ORDERED: FINASTERIDE 5 MG TABLET PO SCH (09:00)
[2018-02-20] MEDS ORDERED: sitaGLIPtin 100 MG TABLET PO SCH (09:00)
[2018-02-20] MEDS ORDERED: LEVOFLOXACIN 750 MG/150 ML BAG IV SCH (09:00)
[2018-02-20] MEDS ORDERED: ACETAMINOPHEN 500 MG TABLET PO PRN (09:37)
--- NOTE | 2018-02-20 10:56 | Discharge Summary ---
Medical - DS: Prov Patient information: Note initiated : 02/20/18 at 10:48 am Service Date, if different from initiated Date: [] Patient: Robert Hammer 87 y/o M admitted on 02/15/18 for Right Total Hip Arthroplasty. Chief Complaint: [] Date of admission: 02/15/18 04:40 Discharge date: 02/20/18 Primary care physician: Shey Randle Admitting clinician: Jamal Lamb Consults: 02/15/18 11:21 Consult to Physician [CONS] Routine Comment: Consulting Provider: Susan Yarbrough Reason For Exam: Physician to Consult Discharging clinician: Power Florence Medical - DS: Meds - Discharge Medications Prescriptions: Aspirin [Ecotrin] 325 mg PO BID #60 tab.ec Furosemide [Lasix] 20 mg PO DAILY #30 tab HYDROcodone/APAP 5/325MG [[place] 5-325Mg] 1 - 2 tab PO Q4HP PRN #75 tab PRN Reason: Pain Ipratropium/Albuterol [Duoneb] 3 ml NEB TID #90 ampul.neb Levofloxacin [Levaquin] 500 mg PO DAILY #3 tab predniSONE [Prednisone] 40 mg PO QAMCC #6 tab Active and Home Medications: Home Medications alprazolam 0.25 mg tablet 0.25 mg PO DAILYP PRN tab 08/17/17 [History Confirmed 02/09/18 Last Taken Unknown] celecoxib 200 mg capsule 200 mg PO QDAY 08/17/17 [History Confirmed 02/09/18 Last Taken Unknown] finasteride 5 mg tablet 5 mg PO QDAY 08/17/17 [History Confirmed 02/09/18 Last Taken Unknown] folic acid 400 mcg tablet 400 mcg PO DAILYP PRN 08/17/17 [History Confirmed Last Taken Unknown] gabapentin 300 mg capsule 300 mg PO TID 08/17/17 [History Confirmed 02/09/18 Last Taken Unknown] glipizide ER 5 mg tablet, extended release 24 hr 5 mg PO BIDCC tab 08/17/17 [ History Confirmed 02/09/18 Last Taken Unknown] lovastatin 40 mg tablet 60 mg PO HS 08/17/17 [History Confirmed 02/09/18 Last Taken Unknown] magnesium 250 mg tablet 500 mg PO QDAY 08/17/17 [History Confirmed 02/09/18 Last Taken Unknown] pioglitazone 45 mg tablet 45 mg PO DAILYP PRN 08/17/17 [History Confirmed Last Taken Unknown] potassium 99 mg tablet 99 mg PO QDAY 08/17/17 [History Confirmed 02/09/18 Last Taken Unknown] tamsulosin 0.4 mg capsule 0.8 mg PO HS cap 08/17/17 [History Confirmed Last Taken Unknown] testosterone 100 mg IM Q10D 08/17/17 [History Confirmed 02/09/18 Last Taken Unknown] vitamin E 400 unit capsule 400 unit PO HS 08/17/17 [History Confirmed 02/09/18 Last Taken 01/29/18] zinc 100 mg tablet 100 mg PO QDAY tab 08/17/17 [History Confirmed 02/09/18 Last Taken Unknown] zinc 50 mg tablet 50 mg PO HS 08/17/17 [History Confirmed 02/09/18 Last Taken Unknown] amitriptyline 75 mg tablet 75 mg PO HS tab 09/21/17 [History Confirmed Last Taken Unknown] fyhqyojp-jcjlv-cbn6-C-kyler-bor 1 tab PO BID 09/21/17 [History Confirmed Last Taken Unknown] sennosides 8.6 mg tablet 8.6 mg PO DAILYP PRN 09/21/17 [History Confirmed Last Taken Unknown] Acetaminophen [Tylenol] 1,000 mg PO Q4HP PRN 02/09/18 [History Confirmed Last Taken Unknown] Caffeine [No Doz] 200 mg PO PRN PRN 02/09/18 [History Confirmed 02/09/18 Last Taken Unknown] Cilostazol [Pletal] 100 mg PO BIDAC 02/09/18 [History Confirmed 02/09/18 Last Taken 01/29/18] Clobetasol Propionate [Cormax] 1 each TOPICAL TID 02/09/18 [History Confirmed Last Taken Unknown] Ferrous Sulfate 325 mg PO BIDCC 02/09/18 [History Confirmed 02/09/18 Last Taken Unknown] Oxybutynin Chloride [Oxybutynin Chloride ER] 10 mg PO DAILY 02/09/18 [History Confirmed 02/09/18 Last Taken Unknown] Vitamin D3 800 unit PO DAILY 02/09/18 [History Confirmed 02/09/18 Last Taken Unknown] sitaGLIPtin [Januvia] 100 mg PO DAILY 02/09/18 [History Confirmed 02/09/18 Last Taken Unknown] Aspirin [Ecotrin] 325 mg PO BID #60 tab.ec 02/19/18 [Rx Last Taken Unknown] HYDROcodone/APAP 5/325MG [[place] 5-325Mg] 1 - 2 tab PO Q4HP PRN #75 tab 02/19/18 [Rx Last Taken Unknown] Medical - DS: Hosp Hospital course: Mr. Hammer is a 87 year old Male with history of diabetes peripheral vascular disease atrial fibrillation and other medical issues was admitted to the ortho service for an elective right hip replacement surgery. The patient had no symptoms in the preo. In the Intra-Op the patient developed hypotension after administration of anesthesia. The patient needed pressor support intraoperatively and was hypotensive in the postop. Patient's blood pressure stabilized later and was moved to the ICU for close monitoring. Medicine was consulted for further management. EKG done postop showed no acute changes compared to the EKG done preop. On my evaluation patient was lying comfortably in bed, on 4-6 L of oxygen. This is a new oxygen requirement for the patient. He denies use of oxygen in the past however does have history of emphysema and COPD. The patient denies any chest pain shortness of breath cough fever headache dizziness abdominal pain nausea vomiting palpitations or any other acute concerning symptom at present or in the preop. Patient feels that he is doing well at this time and was anxious to eat some food. Chest x-ray done showed CHF versus fluid overload superimposed on moderate pulmonary fibrosis. Patient's echocardiogram done 06/03/2017 shows ejection fraction of 55-60%, normal LV thickness, bilateral atrial enlargement, mild RV chamber enlargement. 02/17 Patient seen and examined, no acute overnight events. Blood pressure is in the lower end of normal. He is tolerating Lasix, continue with gentle diuresis. He still hypoxic needing oxygen. He denies any other acute complaints or concerns. He refuses to acknowledge that he has a history of atrial fibrillation, notes that he had irregular heartbeat since 1940s. He also does not wish to acknowledge the fact that he has COPD. He has moderate emphysema on his chest CT. Continue steroids and duo nebs for now. Continue gentle diuresis as much as blood pressure allows. Continue working with physical therapy. The patient did get tachycardic over some activity yesterday and did have tachycardia at baseline 2. He was given digoxin 1 yesterday I will repeat another dose today. 02/18 Pt seen examined, and the bed comfortably. Denies any acute complaints. No chest pain shortness of breath abdominal pain nausea vomiting reported. He was unable to urinate well overnight needed to be straight cath. He is on Flomax as well as Ditropan for overactive bladder and BPH, monitor today. Will hold ditropan today and see how the patient does. Wean off oxygen as tolerated. Patient still requires oxygen at 2 L. Activity with physical therapy Patient's blood pressure is on the lower end of normal but stable patient is asymptomatic with his blood pressure. 02/19 Patient seen and examined, in bed comfortable no acute complaints. Vital signs stable he was unable to be last night but is able to be this morning. He had straight cath done overnight. Patient will repeat a dose of Lasix today. Still on oxygen but does not need as much. Clinically he is symptomatic. Is able to ambulate around. Will transfer to medical surgical floor. Continue to hold Ditropan and monitor urine output continue Flomax. Likely discharge tomorrow to rehab 02/20 Pt seen examined, he continues to improve, he is off oxygen during day time, only needed 0.5L at night, he is working well with PT< stable for discharge WIll d/c to SNF start on duoneb tid for emphysema, will continue prednisone for 3 more days, started on po lasix 20mg daily. He is already on a K supplement. Disch Diagnosis and plan Intraop and post op Hypotension: Likely secondary to anesthetic medication. BP stable, pt asymptomatic, not on any meds, likely medication related in the radha op period. monitor for now. workup neg so far, BP back to baseline at discharge , pt asymptomatic, CHF: Noted on X ray, elevated bnp, IV lasix daily, clinically improving, repeat chest x-ray shows improving pulmonary congestion., Echo done shows normal lv function good IVC collapse with inspiration. COntinue oral lasix 20mg at discharge. Hypoxia/ COPD: CT shows possible pna/ atelectasis as well as emphysema, no pe, on antibiotics, duonebs and steroids, continue on duonebs tid at discharge, continue prednisoone and levofloxacin for 3 more days. DM: Glucose level reviewed, home medications renewed. continue sliding scale regime. given that we have started steroids, I expect the glucose to come back to baseline after steroid course is finished. Peripheral vascular disease-continue statin and aspirin. BPH with bladder overactivity: had some issues with bladder functino, needing straight cath, I have discontinued ditropan, he was able to void after the effect of this medication was off, He will continue on flomax and finasteride. Atrial fibrillation-patient is on aspirin for same. Not on anticoagulation. Reviewed cardiology note did have history of noncompliance with medication as well as bleeding complications therefore anticoagulation has not been continued. DVT asa bid as per ortho protocol Discharge diagnosis: COPD/ Hypotension/ CHF/ Hip Replacement. - Time Spent with Patient Total time spent providing and/or coordinating discharge services: Greater than 30 minutes Medical - DS: Exam - Constitutional Vitals: Vital Signs Temp Pulse Pulse Resp BP BP BP 02/20/18 07:31 90 18 02/20/18 07:20 90 18 02/20/18 07:01 98.4 F 18 106/71 02/20/18 04:00 97.9 F 86 20 112/68 02/20/18 00:48 19 02/20/18 00:34 85 19 02/19/18 23:42 98.0 F 93 H 20 93/54 02/19/18 20:00 97.6 F 89 20 104/61 02/19/18 19:55 89 16 02/19/18 16:00 97.5 F 18 122/75 02/19/18 11:27 97.7 F 20 129/64 Pulse Ox 02/20/18 07:31 91 02/20/18 07:20 02/20/18 07:01 94 02/20/18 04:00 94 02/20/18 00:48 93 02/20/18 00:34 02/19/18 23:42 92 02/19/18 20:00 96 02/19/18 19:55 96 02/19/18 16:00 94 02/19/18 11:27 94 Intake and Output 02/19/18 02/20/18 02/20/18 21:59 05:59 13:59 Intake Total 240 / 240 480 / 480 Output Total 1125 / 1125 450 / 450 800 / 800 Balance -885 / -885 30 / 30 -800 / -800 Intake: Oral 240 / 240 480 / 480 Output: Void Amount 1125 / 1125 450 / 450 800 / 800 Other: Meal Dinner Percent of Meal Consumed 100% Feeding Ability Independent # Voids 1 1 1 Weight 217 lb 8 oz Additional comments: Constitutional; Afebrile, cooperative, alert, not in distress. Eyes- No icterus, , No periorbital swelling Ears- Ext ear normal, hearing normal to conversation. Neck- Midline trachea, supple Respiratory system: Air Entry equal on both sides, No crackles or wheezing, no rhonchi. CVS- Rate rhythm irregular, S1,S2 heard, no gallop, no rub. Abdomen- Soft nontender abdomen, no organomegaly, no tenderness, no guarding or rigidity, [employer]- AOOx3, moving all extremities, no gross focal deficit noted. Medical - DS: Data Procedures and tests throughout hospitalization: CTA IMPRESSION: No evidence of pulmonary emboli Moderate emphysema Resolving pulmonary vascular congestion Minor atelectasis or pneumonia posteriorly in both lung bases Echo LV midly dilated mild LVH LVEF 60-65 RV midly dialted Mild pulm HTN 40-50 Labs on day of discharge: Labs from last 24 hours 02/20/18 02/20/18 04:05 04:05 WBC 9.9 RBC 3.00 L Hgb 9.6 L Hct 29.0 L MCV 96.7 MCH 32.1 MCHC 33.2 RDW 15.6 H Plt Count 186 MPV 8.2 Gran % 82.7 H Lymph % (Auto) 8.8 L [place] % (Auto) 5.5 Eos % (Auto) 3.0 Baso % (Auto) 0 Gran # 8.2 H Lymph # (Auto) 0.9 L [place] # (Auto) 0.5 Eos # (Auto) 0.3 Baso # (Auto) 0 Sodium 133 Potassium 4.9 Chloride 96 Carbon Dioxide 28 Anion Gap 9.0 BUN 25 H Creatinine 0.8 GFR Calculation 81 Glucose 205 H Uric Acid 4.2 Calcium 8.7 Phosphorus 3.4 Magnesium 2.1 Total Bilirubin 0.5 Direct Bilirubin < 0.2 GGT 277 H AST 38 H ALT 35 Alkaline Phosphatase 87 Lactate Dehydrogenase 204 Total Protein 5.5 L Albumin 3.1 L Globulin 2.4 Albumin/Globulin Ratio 1.3 Triglycerides 36 Preliminary micro results at discharge 02/15/18 15:43 Blood Culture - Preliminary Blood 05/02/18 15:47 Blood Culture - Preliminary Blood Medical - DS: A/P - Patient/Caregiver Discharge Instructions Activity: as per physical therapy, wear oxygen at night (wean off oxygen as tolerated. GOAL Osat > 90%) Diet: Cardiac, Consistent Carbohydrate Additional Instructions: FOllow up with PCP in 1 week Wean off oxygen as tolerated, Use incentive spirometry every 2-4 hrs GO to the ER if fever, chest pain, shortness of breath or any other acute concerning symptom Levofloxacin and Prednisone is for 3 more days I would expect his glucose values to improve after steroids are discontinued, Please get in touch with the PCP for further titration of insulin and if Insulin is still needed after steroids are discontinued. Follow up with ortho as per their reccommendations. Prescriptions: Aspirin [Ecotrin] 325 mg PO BID #60 tab.ec HYDROcodone/APAP 5/325MG [[place] 5-325Mg] 1 - 2 tab PO Q4HP PRN #75 tab PRN Reason: Pain Other Amb Orders: Physical Therapy at Discharge - CHALO Location: Determined By Patient Walker Location: Determined By Patient - Follow up Plan Follow up with: Shey Randle ARNP [Primary Care Provider] - Disposition: Xfer SNF Prognosis: Fair Rehab Potential: Fair I certify that the patient requires SNF services: Yes Overall status at discharge: patient is progressing back to baseline Medical - DS: Qual - VTE Deep Vein Thrombosis/Pulmonary Embolism Present on Admission: No
== END 2018-02-20 14:05 | DRG 469 ==
LOC: MEDSUR 04:40 → ICU 11:40 → MEDSUR 02-19 14:21
PROVIDERS: ADMIT Orthopaedic Surgery; ATTEND Orthopaedic Surgery